=== PATIENT | female | born 2000 | race Caucasian/White ===

== ENCOUNTER 2020-09-30 09:30 | Outpatient (REF) | payer OTHER, SELFPAY ==
[2020-09-30 09:45] LABS: COVID-19 Test Positive (Negative)
== END 2020-09-30 09:31 | disposition home or self-care (01) ==
LOC: HO.LAB 09:30
PROVIDERS: Visit Provider Internal Medicine
DX: Z20.828 Contact with and (suspected) exposure to other viral communicable diseases (principal)
CPT/HCPCS: 87635; C9803

== ENCOUNTER 2020-11-09 16:08 | Outpatient (REF) | payer OTHER, SELFPAY | END 2020-11-09 16:09 | disposition home or self-care (01) | LOC: HO.LAB 16:08 | PROVIDERS: Visit Provider Nurse Practitioner Family | DX: J02.9 Acute pharyngitis, unspecified (principal) | CPT/HCPCS: 87071; 87255; 87880 ==

== ENCOUNTER 2021-06-15 09:59 | Outpatient (REF) | payer OTHER, SELFPAY ==
[2021-06-15 12:09] LABS: HCG Quantitative 3957 mIU/mL
== END 2021-06-15 10:00 | disposition home or self-care (01) ==
LOC: HO.LAB 09:59
PROVIDERS: Visit Provider Advanced Practice Midwife
DX: N92.6 Irregular menstruation, unspecified (principal); E66.01 Morbid (severe) obesity due to excess calories; Z68.41 Body mass index [BMI] 40.0-44.9, adult
CPT/HCPCS: 36415; 81025; 84702

== ENCOUNTER 2021-06-17 06:53 | Outpatient (REF) | payer OTHER, SELFPAY ==
[2021-06-17 08:06] LABS: HCG Quantitative 6653 mIU/mL
== END 2021-06-17 06:54 | disposition home or self-care (01) ==
LOC: HO.LAB 06:53
PROVIDERS: Visit Provider Advanced Practice Midwife
DX: N92.6 Irregular menstruation, unspecified (principal)
CPT/HCPCS: 36415; 84702

== ENCOUNTER 2021-06-24 09:32 | Outpatient (REF) | payer OTHER, SELFPAY ==
--- NOTE | ~2021-06-24 | US_ITS ---
EXAMINATION: OBSTETRICAL ULTRASOUND, FIRST TRIMESTER HISTORY: 21 year her old with irregular menstruation LMP: 05/10/2021 COMPARISON: None TECHNIQUE: Real time transabdominal imaging with color and M-mode Doppler. FINDINGS: A single, live IUP CRL of 4.8 mm c/w 6.2wks is noted. Heart Rate: 120 beats per minute. Both maternal ovaries are seen and appear normal. GESTATIONAL AGE: 1. GA from LMP: 6.3 wks 2. GA from AUA: 6.2 wks ESTIMATED DATE OF DELIVERY: 1. DIANNE from LMP: 02/14/2022 2. DIANNE from AUA: 02/15/2022 US/US OB <= 14 weeks fetus IMPRESSION: 1. The single live IUP 2. CRL consistent with 6.2 weeks of gestation confirming the DIANNE of 02/14/2022. Thank you very much for this referral. This note was generated with a voice recognition program. Please excuse any errors which may have been overlooked during my review of this note. Sometimes these errors may affect the content or meaning of a given sentence.
== END 2021-06-24 09:33 | disposition home or self-care (01) ==
LOC: HO.US 09:32
PROVIDERS: Visit Provider Advanced Practice Midwife
DX: Z34.91 Encounter for supervision of normal pregnancy, unspecified, first trimester (principal)
CPT/HCPCS: 76801

== ENCOUNTER 2021-07-06 09:43 | Outpatient (REF) | payer OTHER, SELFPAY ==
[2021-07-06 10:03] LABS: MANUAL DIFF FLAG NO
[2021-07-06 10:06] LABS: Basophils Percent Auto 0.3 % (0-2); Eosinophils Absolute Auto 0.1 X10*3/uL (0.0-0.4); Eosinophils Percent Auto 1.3 % (0-4); Hematocrit 36.8 % (37-47); Hemoglobin 12.8 g/dl (12.0-16.0); Imm Gran Abs Auto 0.03 X10*3/uL (0.00-0.03); Imm Gran Pct Auto 0.3 % (0.0-0.4); Lymphocytes Percent Auto 20.1 % (20-40); Mean Corpuscular HGB Conc 34.8 g/dl (31.0-35.0); Mean Corpuscular Hemoglobin 30.7 pg (27.0-33.0); Mean Corpuscular Volume 88.2 fL (80-98); Monocytes Absolute Auto 0.8 X10*3/uL (0.1-1.2); Monocytes Percent Auto 7.8 % (2-11); Neutrophils Absolute Auto 6.9 X10*3/uL (2.0-8.3); Neutrophils Percent Auto 70.2 % (45-73); Platelet Count 225 X10*3/uL (160-400); Red Blood Count 4.17 X10*6/uL (4.20-5.50); Red Cell Distribution Width 12.3 % (11.0-16.0); White Blood Count 9.8 X10*3/uL (4.8-10.8)
[2021-07-06 11:32] LABS: Alanine Aminotransferase 13 U/L (0-31); Albumin Level 4.1 g/dL (3.5-5.0); Alkaline Phosphatase 60 U/L (39-117); Anion Gap 12 (12-20); Aspartate Amino Transferase 13 U/L (5-31); Bilirubin Total 0.5 mg/dL (0.0-1.0); Blood Urea Nitrogen 12 mg/dL (9-16); Calcium 9.1 mg/dL (8.4-10.2); Carbon Dioxide 22 mmol/L (22-29); Chloride 108 mmol/L (96-108); Cholesterol 152 mg/dL; Estimated Glomerular Filt Rate > 60; Glucose Fasting 93 mg/dL (60-99); HDL Cholesterol 67 mg/dL; LDL Cholesterol Calculated 74 mg/dl; Potassium 4.6 mmol/L (3.3-5.1); Sodium 137 mmol/L (135-145); Total Protein 6.5 g/dL (6.5-8.0); Triglycerides 55 mg/dL
== END 2021-07-06 09:44 | disposition home or self-care (01) ==
LOC: HO.LAB 09:43
PROVIDERS: Visit Provider Nurse Practitioner Psychiatric/Mental Health
DX: F31.89 Other bipolar disorder (principal)
CPT/HCPCS: 36415; 80053; 80061; 85025

== ENCOUNTER 2021-07-11 22:23 | Emergency (ER) | payer OTHER, SELFPAY ==
--- NOTE | ~2021-07-11 | US_ITS ---
EXAMINATION: US OBSTETRICAL ULTRASOUND CLINICAL INFORMATION: Bleeding and cramping. 9 weeks . COMPARISON: 06/24/2021. LMP: 05/10/2021. Gestational age by maternal dates is 9 weeks 0 days. Estimated date of delivery by maternal dates is 02/14/2022. TECHNIQUE: Transabdominal sonographic evaluation of the pelvis. FINDINGS: There is a single intrauterine gestational sac with visible yolk sac, embryo/fetus, and cardiac activity. Suspect a small subchorionic hematoma at the lower uterine segment measuring 1.2 x 0.8 x 1 cm.. HR: 169 beats per minute. CRL (crown rump length): 2.56 cm (9 weeks 3 days +/- 4 days). DIANNE (estimated date of delivery): 02/11/2022 +/- 4 days. MATERNAL ADNEXA: The right maternal ovary is not seen. The left maternal ovary measures 2.3 x 2 x 2.2 cm. There is no significant maternal adnexal mass. Small amount of pelvic free fluid. US/US OB <= 14 weeks fetus IMPRESSION: 1. Single intrauterine gestation with ultrasound gestational age of 9 weeks 3 days +/- 4 days. Likely small subchorionic hemorrhage. 2. Estimated date of delivery is 02/11/2022 +/- 4 days. 3. No maternal adnexal mass. Small volume pelvic ascites.
[2021-07-11 22:44] VITALS: BP 116/62; PULSE 85; RESP 18; TEMP 37.2; O2SAT 100; BMI 39.9
--- NOTE | 2021-07-11 23:02 | ED.FEMALEGU ---
HPI - Female Genitourinary General Chief complaint: Vaginal Bleeding Stated complaint: Vaginal bleeding/9 wks prg Time Seen by Provider: 07/11/21 22:26 Source: patient Mode of arrival: ambulatory Limitations: no limitations History of Present Illness HPI Narrative: G1 approx 9 weeks D = to IUP on US MD elicited complaint: vaginal bleeding and pelvic pain Onset (ago): week(s) (once last week intermittent today) Location of symptoms: suprapubic Severity: mild Quality of pain: cramping Consistency: intermittent Vaginal bleeding: scant and other (spotting/pink in color) Exacerbating factors: none Relieving factors: none Associated symptoms: denies other symptoms Treatment prior to arrival: none Patient : Yes Related Data Home Medications Medication Instructions Recorded Confirmed lamotrigine 100 mg tablet 100 mg PO DAILY 11/09/20 lamotrigine 25 mg tablet 25 mg PO DAILY 11/09/20 aripiprazole 5 mg tablet 5 mg PO DAILY 06/15/21 Previous Rx's Medication Instructions Recorded vitamin with calcium 1 tab PO DAILY #30 tab 06/15/21 no.72-iron 27 mg-folic acid 1 mg tablet ( Vitamins Plus Low Iron) Allergies Allergy/AdvReac Type Severity Reaction Status Date / Time No Known Allergies Allergy Verified 07/11/21 22:44 [No Known Allergies*] Review of Systems Review of Systems: Constitutional : No Fever, No Chills ENT/Mouth : No sore throat, No Rhinorrhea Eyes: No Eye Pain, No Redness Cardiovascular : No Chest Pain, No SOB Respiratory : No Cough, No Sputum, No Wheezing Gastrointestinal : positive Nausea, No Vomiting, No Diarrhea, positive abdominal pain, Genitourinary : positive irregular bleeding, No Dysuria, No Urinary Frequency, positive pelvic pain Musculoskeletal : No Myalgias Skin : No rash Neuro : No Weakness, No Headache Psych : No Anxiety/Panic, No Depression Heme/Lymph: No bruising, No Lymphadenopathy Endocrine : No Polyuria, No Polydipsia All other systems reviewed and are negative PMFSH Past Medical History Medical History Asthma Herpes simplex type 1 infection Herpes simplex type 2 infection Morbid obesity with body mass index (BMI) of 40.0 to 44.9 in adult Surgical History H/O wisdom tooth extraction Social History Social History Alcohol intake: unknown Patient Tobacco Use Status: Former Tobacco user Use of substances other than those prescribed or required for medical reasons: No Advance Directives: No Patient : Yes 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 Oriented X3. No acute distress. Eyes: Pupils equal, round and reactive to light. ENT: Pharynx normal. Neck: Normal inspection. Neck supple. CVS: Normal heart rate and rhythm. Pulses normal. Respiratory: No respiratory distress. Breath sounds normal. Abdomen: Soft and nontender. : os closed no blood noted Skin: Skin warm and dry. Normal skin color. Normal skin turgor. Extremities: No lower extremity edema. No calf ttp Neuro: Oriented X 3. No motor deficit. No sensory deficit. Course Course Course Narrative: given reported bleeding at home last week and today as well as pelvic cramping - RH negative will need to dose Rhogam. MDM - Female Genitourinary MDM Narrative Medical decision making narrative: 21 yo female G1 9 weeks D = US confirmed IUP comes in with some spotting and pelvic cramping - no recent intercourse will need quant, Rh type, US to assess , threatened ab precautions and follow up with OBGYN. Lab Data Result diagrams: 07/11/21 23:18 07/11/21 23:18 Labs: Lab Results 07/11/21 07/11/21 07/11/21 Range/Units 23:18 23:18 23:18 WBC 11.3 H (4.8-10.8) X10*3/uL RBC 4.02 L (4.20-5.50) X10*6/uL Hgb 12.2 (12.0-16.0) g/dl Hct 35.5 L (37-47) % MCV 88.3 (80-98) fL MCH 30.3 (27.0-33.0) pg MCHC 34.4 (31.0-35.0) g/dl RDW 12.1 (11.0-16.0) % Plt Count 220 (160-400) X10*3/uL MPV 9.1 L (9.4-12.3) fL Immature Gran % (Auto) 0.4 (0.0-0.4) % Neut % (Auto) 70.9 (45-73) % Lymph % (Auto) 18.3 L (20-40) % [place] % (Auto) 8.2 (2-11) % Eos % (Auto) 1.9 (0-4) % Baso % (Auto) 0.3 (0-2) % Lymph # (Auto) 2.1 (1.2-4.9) X10*3/uL [place] # (Auto) 0.9 (0.1-1.2) X10*3/uL Eos # (Auto) 0.2 (0.0-0.4) X10*3/uL Baso # (Auto) 0.0 (0.0-0.2) X10*3/uL Abs Immat Gran (auto) 0.04 H (0.00-0.03) X10*3/uL Absolute Neuts (auto) 8.0 (2.0-8.3) X10*3/uL Absolute Nucleated RBC 0.000 (0.0-0.012) X10*3/uL Nucleated RBC % (auto) 0.0 (0.0-0.2) /100WBC Sodium 139 (135-145) mmol/L Potassium 4.1 (3.3-5.1) mmol/L Chloride 109 H (96-108) mmol/L Carbon Dioxide 23 (22-29) mmol/L Anion Gap 11 L (12-20) BUN 9 (9-16) mg/dL Creatinine 0.64 (0.5-1.4) mg/dL Estim Creat Clear Calc 167.7 Estimated GFR > 60 Random Glucose 95 (60-115) mg/dL Calcium 9.0 (8.4-10.2) mg/dL Total Bilirubin 0.5 (0.0-1.0) mg/dL AST 12 (5-31) U/L ALT 14 (0-31) U/L Alkaline Phosphatase 57 (39-117) U/L Total Protein 6.3 L (6.5-8.0) g/dL Albumin 4.0 (3.5-5.0) g/dL Beta HCG, Quant 11041 mIU/mL Urine Color YELLOW Urine Appearance CLEAR Urine pH 5.5 (5.0-8.0) Ur Specific [place] 1.025 (1.005-1.025) Urine Protein NEG (NEG-TRACE) MG/DL Urine Glucose (UA) NEG (NEG) MG/DL Urine Ketones NEG (NEG) MG/DL Urine Blood NEG (NEG) Urine Nitrite NEG (NEG) Ur Leukocyte Esterase NEG (NEG) Blood Type 07/11/21 Range/Units 23:18 WBC (4.8-10.8) X10*3/uL RBC (4.20-5.50) X10*6/uL Hgb (12.0-16.0) g/dl Hct (37-47) % MCV (80-98) fL MCH (27.0-33.0) pg MCHC (31.0-35.0) g/dl RDW (11.0-16.0) % Plt Count (160-400) X10*3/uL MPV (9.4-12.3) fL Immature Gran % (Auto) (0.0-0.4) % Neut % (Auto) (45-73) % Lymph % (Auto) (20-40) % [place] % (Auto) (2-11) % Eos % (Auto) (0-4) % Baso % (Auto) (0-2) % Lymph # (Auto) (1.2-4.9) X10*3/uL [place] # (Auto) (0.1-1.2) X10*3/uL Eos # (Auto) (0.0-0.4) X10*3/uL Baso # (Auto) (0.0-0.2) X10*3/uL Abs Immat Gran (auto) (0.00-0.03) X10*3/uL Absolute Neuts (auto) (2.0-8.3) X10*3/uL Absolute Nucleated RBC (0.0-0.012) X10*3/uL Nucleated RBC % (auto) (0.0-0.2) /100WBC Sodium (135-145) mmol/L Potassium (3.3-5.1) mmol/L Chloride (96-108) mmol/L Carbon Dioxide (22-29) mmol/L Anion Gap (12-20) BUN (9-16) mg/dL Creatinine (0.5-1.4) mg/dL Estim Creat Clear Calc Estimated GFR Random Glucose (60-115) mg/dL Calcium (8.4-10.2) mg/dL Total Bilirubin (0.0-1.0) mg/dL AST (5-31) U/L ALT (0-31) U/L Alkaline Phosphatase (39-117) U/L Total Protein (6.5-8.0) g/dL Albumin (3.5-5.0) g/dL Beta HCG, Quant mIU/mL Urine Color Urine Appearance Urine pH (5.0-8.0) Ur Specific [place] (1.005-1.025) Urine Protein (NEG-TRACE) MG/DL Urine Glucose (UA) (NEG) MG/DL Urine Ketones (NEG) MG/DL Urine Blood (NEG) Urine Nitrite (NEG) Ur Leukocyte Esterase (NEG) Blood Type A Negative Discharge Plan Discharge Clinical Impression: Threatened Subchorionic bleed Qualifiers: Fetus number: single or unspecified fetus Trimester: first trimester Qualified Code(s): O41.8X10 - Other specified disorders of amniotic fluid and membranes, first trimester, not applicable or unspecified Patient Disposition: Home, Self-Care Instructions: Rho(D) Immune Globulin (By injection), Threatened Miscarriage (ED), Subchorionic Hemorrhage (ED) Additional Instructions: return to ED for any worsening symptoms or concerns call your OBGYN today, pelvic rest until symptoms resolved. Prescriptions: No Action lamotrigine 100 mg tablet 100 mg PO DAILY RF: 0 lamotrigine 25 mg tablet 25 mg PO DAILY RF: 0 aripiprazole 5 mg tablet 5 mg PO DAILY RF: 0 Vitamin Plus Low Iron 27 mg iron- 1 mg tablet 1 tab PO DAILY Qty: 30 RF: 11 Stand Alone Forms: Work/School Release
[2021-07-11 23:23] LABS: MANUAL DIFF FLAG NO
[2021-07-11] MEDS: 0.9 % Sodium Chloride 1,000 ML 999 ML IVCONT (23:23)
[2021-07-11 23:24] LABS: Basophils Percent Auto 0.3 % (0-2); Eosinophils Absolute Auto 0.2 X10*3/uL (0.0-0.4); Eosinophils Percent Auto 1.9 % (0-4); Hematocrit 35.5 % (37-47); Hemoglobin 12.2 g/dl (12.0-16.0); Imm Gran Abs Auto 0.04 X10*3/uL (0.00-0.03); Imm Gran Pct Auto 0.4 % (0.0-0.4); Lymphocytes Absolute Auto 2.1 X10*3/uL (1.2-4.9); Lymphocytes Percent Auto 18.3 % (20-40); Mean Corpuscular HGB Conc 34.4 g/dl (31.0-35.0); Mean Corpuscular Hemoglobin 30.3 pg (27.0-33.0); Mean Corpuscular Volume 88.3 fL (80-98); Mean Platelet Volume 9.1 fL (9.4-12.3); Monocytes Absolute Auto 0.9 X10*3/uL (0.1-1.2); Monocytes Percent Auto 8.2 % (2-11); Neutrophils Percent Auto 70.9 % (45-73); Platelet Count 220 X10*3/uL (160-400); Red Blood Count 4.02 X10*6/uL (4.20-5.50); Red Cell Distribution Width 12.1 % (11.0-16.0); White Blood Count 11.3 X10*3/uL (4.8-10.8)
[2021-07-11 23:27] LABS: Glucose Urine UA NEG (NEG); Leukocyte Esterase Urine NEG (NEG); Nitrite Urine NEG (NEG); PH 5.5 (5.0-8.0); Specific Gravity - Urine 1.025 (1.005-1.025); Urine Blood NEG (NEG); Urine Ketones NEG (NEG); Urine Protein NEG (NEG-TRACE)
[2021-07-11 23:30] LABS: Appearance Urine CLEAR; Color Urine YELLOW
--- NOTE | 2021-07-11 23:35 | PC.NURSE ---
Provider in to bedside to perform a pelvic exam.
[2021-07-11 23:48] LABS: Alanine Aminotransferase 14 U/L (0-31); Alkaline Phosphatase 57 U/L (39-117); Anion Gap 11 (12-20); Aspartate Amino Transferase 12 U/L (5-31); Bilirubin Total 0.5 mg/dL (0.0-1.0); Blood Urea Nitrogen 9 mg/dL (9-16); Carbon Dioxide 23 mmol/L (22-29); Chloride 109 mmol/L (96-108); Creatinine Clr Calc Pharmacy 167.7; Estimated Glomerular Filt Rate > 60; Glucose Random 95 mg/dL (60-115); Potassium 4.1 mmol/L (3.3-5.1); Sodium 139 mmol/L (135-145); Total Protein 6.3 g/dL (6.5-8.0)
[2021-07-12 00:30] LABS: HCG Quantitative 91350 mIU/mL
[2021-07-12] MEDS: Rho(D) Immune Globulin 300 MCG SYRINGE IM (00:32)
== END 2021-07-12 01:48 | disposition home or self-care (01) ==
PROVIDERS: Student in an Organized Health Care Education/Training Program; Emergency Provider Emergency Medicine
DX: O20.0 Threatened abortion (principal); O41.8X10 Other specified disorders of amniotic fluid and membranes, first trimester, not applicable or unspecified; Z3A.09 9 weeks gestation of pregnancy
CPT/HCPCS: 36415; 76801; 80053; 81003; 84702; 85025; 86900; 86901; 96360; 96372; 99284; J2790

== ENCOUNTER → 2021-07-20 09:51 | Outpatient (BNVA) | payer OTHER, SELFPAY | PROVIDERS: Visit Provider Advanced Practice Midwife | DX: Z34.81 Encounter for supervision of other normal pregnancy, first trimester (principal); Z3A.10 10 weeks gestation of pregnancy | CPT/HCPCS: 99212 ==

== ENCOUNTER → 2021-08-05 14:02 | Outpatient (BNVA) | payer OTHER, SELFPAY | PROVIDERS: Visit Provider Advanced Practice Midwife | DX: O99.511 Diseases of the respiratory system complicating pregnancy, first trimester (principal); J45.909 Unspecified asthma, uncomplicated; Z3A.12 12 weeks gestation of pregnancy | CPT/HCPCS: 99212 ==

== ENCOUNTER 2021-08-08 11:04 | Outpatient (REF) | payer OTHER, SELFPAY ==
[2021-08-08 13:20] LABS: Hematocrit 37.4 % (37-47); Hemoglobin 12.8 g/dl (12.0-16.0); Mean Corpuscular HGB Conc 34.2 g/dl (31.0-35.0); Mean Corpuscular Hemoglobin 29.6 pg (27.0-33.0); Mean Corpuscular Volume 86.6 fL (80-98); Mean Platelet Volume 9.4 fL (9.4-12.3); Platelet Count 245 X10*3/uL (160-400); Red Blood Count 4.32 X10*6/uL (4.20-5.50); White Blood Count 10.8 X10*3/uL (4.8-10.8)
[2021-08-08 13:55] LABS: Glucose 1 Hour PP 50gm Dose 92 mg/dL (60-140)
[2021-08-08 13:58] LABS: Amphetamine Screen Urine Not Detected (Not Detect); Barbiturates, Urine Not Detected (Not Detect); Benzodiazepines Screen Urine Not Detected (Not Detect); Cannabinoid Screen Urine Not Detected (Not Detect); Cocaine Screen Urine Not Detected (Not Detect); Fentanyl, urine Not Detected (Not Detect); Opiate Screen Urine Not Detected (Not Detect); Phencyclidine Screen Urine Not Detected (Not Detect)
[2021-08-08 14:54] LABS: Syphilis Screen Nonreactive (Nonreactive)
[2021-08-09 08:56] LABS: Rubella IgG Antibody 1.63 Index; Varicella IgG Antibody <135.00 index
[2021-08-09 08:59] LABS: HBsAGNum1 0.19 S/CO (0.00-0.99); HIV AB/AG Nonreactive (Nonreactive); HIV Num 1 0.08 S/CO (0.00-0.99); Hepatitis B Surface Antigen Negative (Negative); ~HepC Num1 0.09 S/CO (0.00-0.79); ~Hepatitis C Antibody Nonreactive (Nonreactive)
== END 2021-08-08 11:05 | disposition home or self-care (01) ==
LOC: HO.LAB 11:04
PROVIDERS: Visit Provider Advanced Practice Midwife
DX: Z34.90 Encounter for supervision of normal pregnancy, unspecified, unspecified trimester (principal)
CPT/HCPCS: 80307; 85027; 86762; 86780; 86787; 86803; 86850; 86870; 86885; 86900; 86901; 87086; 87340; 87389

== ENCOUNTER 2021-08-12 13:53 | Outpatient (REF) | payer OTHER, SELFPAY ==
--- NOTE | ~2021-08-12 | US_ITS ---
EXAMINATION: OBSTETRICAL ULTRASOUND, FIRST TRIMESTER HISTORY: 21-year-old at 13.3 weeks of gestation NT screening COMPARISON: 07/12/2021 TECHNIQUE: Real time transabdominal imaging with color and M-mode Doppler. FINDINGS: A single, live IUP CRL of 79.3 mm c/w 14.0wks is noted. Heart Rate: 147 beats per minute. Normal yolk sac seen. NT was 1.27.mm. NB Present The embryo appears sonographically wnl for this GA. Both maternal ovaries are seen and appear normal. GESTATIONAL AGE: 1. Established GA: 13.3 wks 2. GA from AUA: 14.0 wks ESTIMATED DATE OF DELIVERY: 1. Established DIANNE: 02/14/2022 2. DIANNE from AUA: 02/10/2022 US/US OB 1T nuc measure IMPRESSION: 1. Single live IUP 2. Size equals dates 3. NT of 1.27 mm MFM Consultation: I reviewed the ultrasound findings along with significance of NT measurement. The NT of less than 3mm is generally reassuring. However, the sensitivity for T21 detection is only 60%. I reviewed the availability of serum aneuploidy screening which includes cell-free DNA and placental protein based tests. I discussed the sensitivity, false-positive rate, and other limitations associated with each test. I also reviewed the availability of invasive diagnostic tests that are associated small but definite risk of miscarriage. We also reviewed the differences between screening tests and diagnostic tests. After our discussion, she opted for the First trimester screening that is based on cell-free DNA or non-invasive testing (NIPT). She has history of the bipolar disorder. Currently, she is on Lamictal and Abilify. Use of Lamictal in is acceptable as long as there is a maternal indication. Abilify has not been associated with increased risk of congenital abnormalities in animal models. However there is very little human data. All anti-seizure agents and mood stabilizers have been associated with increased instance of the abstinence syndrome. However the benefit seem to await the risks. A follow up at 18 weeks for survey has been scheduled. Thank you very much for this referral. Total time 30 minutes. The time spent was devoted to counseling the patient about the disease and diagnosis, coordinating care including reviewing her records, pertinent lab data and studies, as well as discussing diagnostic evaluation and workup, plan therapeutic interventions and future disposition of care. This includes any additional research needed to obtain further information in formulating the plan of care of this patient. This note was generated with a voice recognition program. Please excuse any errors which may have been overlooked during my review of this note. Sometimes these errors may affect the content or meaning of a given sentence.
== END 2021-08-12 13:54 | disposition home or self-care (01) ==
LOC: HO.US 13:53
PROVIDERS: Visit Provider Advanced Practice Midwife
DX: Z36.82 Encounter for antenatal screening for nuchal translucency (principal)
CPT/HCPCS: 76813

== ENCOUNTER 2021-08-17 08:28 | Outpatient (REF) | payer OTHER, SELFPAY ==
[2021-08-17 17:15] LABS: CT PCR NOT DETECTED (Not Detect.); NG PCR NOT DETECTED (Not Detect.)
== END 2021-08-17 08:29 | disposition home or self-care (01) ==
LOC: HO.LAB 08:28
PROVIDERS: Visit Provider Advanced Practice Midwife
DX: O99.212 Obesity complicating pregnancy, second trimester (principal); E66.01 Morbid (severe) obesity due to excess calories; Z3A.14 14 weeks gestation of pregnancy; Z20.2 Contact with and (suspected) exposure to infections with a predominantly sexual mode of transmission
CPT/HCPCS: 81003; 87491; 87591; 88142; 99212

== ENCOUNTER 2021-08-21 05:44 | Emergency (ER) | payer OTHER, SELFPAY ==
[2021-08-21 05:52] VITALS: BP 133/67; PULSE 98; RESP 16; O2SAT 98; BMI 41.5
--- NOTE | 2021-08-21 06:43 | ED_ITS ---
HPI - Back Pain/Injury General Chief Complaint: Back Pain/Injury <Roosevelt Weathers MD - Last Filed: 08/21/21 06:55> Stated Complaint: back pain from inj <Roosevelt Weathers MD - Last Filed: 08/21/21 06:55> Time Seen by Provider: 08/21/21 06:16 <Roosevelt Weathers MD - Last Filed: 08/21/21 06:55> Source: patient <Roosevelt Weathers MD - Last Filed: 08/21/21 06:55> Mode of arrival: ambulatory <Roosevelt Weathers MD - Last Filed: 08/21/21 06:55> Limitations: no limitations <Roosevelt Weathers MD - Last Filed: 08/21/21 06:55> History of Present Illness HPI Narrative: 21-year-old female who presents emergency department for evaluation lower back pain. 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 She states that yesterday at around 10:30 a.m. she was involved in a restraint of a patient. During their strain she felt pain in her left lower back. She states she was able to work but had to leave work early at around 1:30 p.m. secondary to her pain. She states that the pain got progressively worse throughout the evening. At 11:00 p.m. she bent over to plug in her phone and developed severe left lower back pain to the point where she was unable to straighten up. She states the pain shot down the back of her leg to just above her knee. She also states that the pain radiated to her right buttocks area but not down her leg. She took Tylenol with only minimal relief of her pain. At 3:00 a.m. this morning she got up to go to the bathroom and her ?back locked up ?and it took her an hour and a half to get back in bed secondary to her pain and spasm. This morning, she states that the pain was severe and was 8/10. She describes the pain as a tense feeling with spasm and a sharp component. The pain does radiate down the back of her right leg to just above her knee. She denied loss of bowel or bladder control. She denied weakness of her lower extremities but she states that her left leg does intermittently feel numb. The patient is 14 weeks , she is a . The patient had an ultrasound 1 week prior. She states that this was complicated by bleeding and she is Rh negative and she received RhoGAM. She denied being ill in any other way prior to the injury, she denied fever, chills, chest pain, shortness of breath, dyspnea on exertion. <Roosevelt Weathers MD - Last Filed: 08/21/21 06:55> Related Data Home Medications: Home Medications Medication Instructions Recorded Confirmed lamotrigine 100 mg tablet 100 mg PO DAILY 11/09/20 08/21/21 lamotrigine 25 mg tablet 25 mg PO DAILY 11/09/20 08/21/21 aripiprazole 5 mg tablet 5 mg PO DAILY 06/15/21 08/21/21 Previous Rx's Medication Instructions Recorded vitamin with calcium 1 tab PO DAILY #30 tab 06/15/21 no.72-iron 27 mg-folic acid 1 mg tablet ( Vitamins Plus Low Iron) aspirin 81 mg chewable tablet 162 mg PO DAILY #60 tab 08/17/21 (Aspirin Childrens) <Roosevelt Weathers MD - Last Filed: 08/21/21 06:55> Allergies/Adverse Reactions: Allergies Allergy/AdvReac Type Severity Reaction Status Date / Time No Known Allergies Allergy Verified 08/17/21 08:45 [No Known Allergies*] <Roosevelt Weathers MD - Last Filed: 08/21/21 06:55> Review of Systems Review of Systems: Yes all other systems are reviewed and are negative <Roosevelt Weathers MD - Last Filed: 08/21/21 06:55> [facility] Past Medical History [facility] Narrative: Social history: 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 She denies tobacco, alcohol and drug use. <Roosevelt Weathers MD - Last Filed: 08/21/21 06:55> Medical History: Medical History Asthma Bipolar 2 disorder Herpes simplex type 1 infection Herpes simplex type 2 infection Morbid obesity with body mass index (BMI) of 40.0 to 44.9 in adult <Roosevelt Weathers MD - Last Filed: 08/21/21 06:55> Surgical History: Surgical History H/O wisdom tooth extraction <Roosevelt Weathers MD - Last Filed: 08/21/21 06:55> Family History Family History: Family History Mother No problems noted. Father No problems noted. Maternal Grandmother Diabetes mellitus Maternal Grandfather Esophageal cancer Paternal Grandmother Lung cancer Paternal Grandfather Colon cancer <Roosevelt Weathers MD - Last Filed: 08/21/21 06:55> Social History Social History: Social History Household Members: Family Housing: House Are you a primary healthcare business analyst to a significant other at home: No Do you presently have visiting nurse or other home services: No Alcohol intake: former Patient Tobacco Use Status: Former Tobacco user Use of substances other than those prescribed or required for medical reasons: No Advance Directives: No Advance Directives Information Provided: Yes Patient : Yes service: No Current occupational status: employed 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 Current occupational exposures/hazards: No Sexual orientation: Straight/Heterosexual Gender identity: Female <Roosevelt Weathers MD - Last Filed: 08/21/21 06:55> Physical Exam Vital Signs: Vital Signs: Last Vital Signs Pulse 85 08/21/21 10:22 Resp 16 08/21/21 10:22 BP 124/62 08/21/21 10:22 Pulse Ox 98 08/21/21 10:22 Body Mass Index 41.5 <Roosevelt Weathers MD - Last Filed: 08/21/21 06:55> Vital Signs: Last Vital Signs Pulse 85 08/21/21 10:22 Resp 16 08/21/21 10:22 BP 124/62 08/21/21 10:22 Pulse Ox 98 08/21/21 10:22 Body Mass Index 41.5 <Norah Sargent MD - Last Filed: 08/21/21 11:29> Const: Other: Very pleasant and cooperative female patient, she is lying on her right side secondary to her lower back pain, she is unable to move on structure secondary to pain, she answers all questions appropriately. <Roosevelt Weathers MD - Last Filed: 08/21/21 06:55> HENMT: Head: Yes normal to inspection, Yes normocephalic and Yes atraumatic <Roosevelt Weathers MD - Last Filed: 08/21/21 06:55> Ears: external ears normal <MD Jamel Carrera Last Filed: 08/21/21 06:55> General nose exam: Normal external nose present <MD Jamel Carrera Last Filed: 08/21/21 06:55> Face and sinus: Yes normal facial exam <MD Jamel Carrera Last Filed: 08/21/21 06:55> Mouth: Normal oral and palatal mucosa present <MD Jamel Carrera Last Filed: 08/21/21 06:55> Throat: Yes posterior oropharynx normal <MD Jamel Carrera Last Filed: 08/21/21 06:55> Eyes: General: appearance normal, both eyes and all related structures <MD Jamel Carrera Last Filed: 08/21/21 06:55> Pupils: Equal, round and reactive pupils present <MD Jamel Carrera Last Filed: 08/21/21 06:55> Neck: Neck: Yes normal visual inspection, Yes no lymphadenopathy, Yes trachea midline and Yes supple <MD Jamel Carrera Last Filed: 08/21/21 06:55> Chest: Chest palpation & inspection: normal inspection of the chest and normal palpation of entire chest wall <MD Jamel Carrera Last Filed: 08/21/21 06:55> Resp: Effort & Inspection: normal respiratory effort and able to speak in complete sentences <MD Jamel Carrera Last Filed: 08/21/21 06:55> Auscultation: clear to auscultation bilaterally <MD Jamel Carrera Last Filed: 08/21/21 06:55> Cardio: Rate: regular rate <MD Jamel Carrera Last Filed: 08/21/21 06:55> Rhythm: regular rhythm <MD Jamle Carrera Last Filed: 08/21/21 06:55> Heart sounds: S1 normal heart sound present, S2 normal heart sound present and no murmurs <MD Jamel Carrera Last Filed: 08/21/21 06:55> GI: Inspection: Yes normal to inspection <MD Jamel Carrera Last Filed: 08/21/21 06:55> Palpation (GI): Soft to palpation, nontender and no guarding <MD Jamel Carrera Last Filed: 08/21/21 06:55> Auscultation: normal bowel sounds <MD Jamel Carrera Last Filed: 08/21/21 06:55> : General: Yes no CVA tenderness <MD Jamel Carrera Last Filed: 08/21/21 06:55> Back/Spine/Pelvis: Back: no CVA tenderness <MD Jamel Carrera Last Filed: 08/21/21 06:55> Thoracic/Lumbar Spine: thoracic and lumbar spine normal to inspection, paraspinal muscle tenderness on the left in the lower lumbar (Moderate to severe with minimal palpation), thoraco-lumbar spasm on the left in the lower lumbar, lumbar spinal tenderness at L3, at L4 and at L5 and straight leg raise positive <MD Jamel Carrera Last Filed: 08/21/21 06:55> Skin: General skin exam: no rashes or lesions noted <MD Jamel Carrera Last Filed: 08/21/21 06:55> Neuro: Cranial nerves: Yes CN's II-XII intact bilaterally and Yes Equal, round and reactive pupils present <MD Jamel Carrera Last Filed: 08/21/21 06:55> Cognition (Neuro): normal cognition <MD Jamel Carrera Last Filed: 08/21/21 06:55> Motor exam (neuro): 5/5 motor strength present throughout <MD Jamel Carrera Last Filed: 08/21/21 06:55> Extrem: General: Yes normal to inspection <Roosevelt Weathers MD - Last Filed: 08/21/21 06:55> Psych: Appearance: grossly normal <Roosevelt Weathers MD - Last Filed: 08/21/21 06:55> Speech and movement: Normal speech and movement present <Roosevelt Weathers MD - Last Filed: 08/21/21 06:55> Affect: normal affect <Roosevelt Weathers MD - Last Filed: 08/21/21 06:55> Attitude: cooperative <Roosevelt Weathers MD - Last Filed: 08/21/21 06:55> Thought process: Normal thought process present <Roosevelt Weathers MD - Last Filed: 08/21/21 06:55> Thought content: Normal thought content present <Roosevelt Weathers MD - Last Filed: 08/21/21 06:55> Course Course Course Narrative: 21-year-old female 14 weeks , Rh negative who presents to the emergency department for evaluation of lower back pain that occurred while she was at work yesterday, the pain is gotten progressively worse to the point where she is having difficulty moving, she is experiencing pain in her left lower back as well as the pain that radiates down the back of her leg to just above her knee. Examination revealed normal vital signs. The patient did have significant tenderness and spasm of her left paraspinal lumbar muscles, she had mild tenderness with palpation of her lower lumbar spine. Her neurologic exam is nonfocal. At this time, I suspect that she has a musculoskeletal injury of her lumbar paraspinal muscle with inflammation around the nerve roots causing pain to travel down her left leg. I did discuss the use of anti-inflammatory steroids and narcotic medications in with the patient. The patient was treated with Solu-Medrol 60 mg IV, morphine 4 mg IV, Zofran 4 mg IV and Tylenol 975 mg orally. We will apply ice to the patient's left lower back paraspinal muscles. At the end of my shift, the patient's care was turned over to my colleague, Dr. Norah Sargent. <Roosevelt Weathers MD - Last Filed: 08/21/21 06:55> MDM - Back Pain/Injury MDM Narrative Medical decision making narrative: Patient has no bowel urinary incontinence. No focal weakness. Positive back pain radiating down to the legs. Consistent with sciatica. Patient is currently 14 weeks Rh is negative but already had RhoGAM. Had ultrasound done shows an intrauterine . Given multiple doses of pain medicine along with steroids moderate relief patient unable to ambulate. Case discussed with hospitalist team. Will admit for pain control. In stable condition. <Norah Sargent MD - Last Filed: 08/21/21 11:29> Lab Data Labs: Lab Results 08/21/21 Range/Units 10:29 COVID-19 ([facility]) Negative (Negative) COVID-19 Clin Com See Note <Roosevelt Weathers MD - Last Filed: 08/21/21 06:55> Lab Results 08/21/21 Range/Units 10:29 COVID-19 ([facility]) Negative (Negative) COVID-19 Clin Com See Note <Norah Sargent MD - Last Filed: 08/21/21 11:29> Discharge Plan Discharge Clinical Impression: Sciatica <Roosevelt Weathers MD - Last Filed: 08/21/21 06:55> Patient Disposition: Admitted As Inpatient <Roosevelt Weathers MD - Last Filed: 08/21/21 06:55> Prescriptions: No Action lamotrigine 100 mg tablet 100 mg PO DAILY RF: 0 lamotrigine 25 mg tablet 25 mg PO DAILY RF: 0 aripiprazole 5 mg tablet 5 mg PO DAILY RF: 0 Vitamin Plus Low Iron 27 mg iron- 1 mg tablet 1 tab PO DAILY Qty: 30 RF: 11 aspirin [Aspirin Childrens] 81 mg tablet,chewable 162 mg PO DAILY Qty: 60 RF: 7 <Roosevelt Weathers MD - Last Filed: 08/21/21 06:55>
[2021-08-21] MEDS: ondansetron HCL 4 MG/2 ML VIAL IVPUSH (06:54)
[2021-08-21 06:56] VITALS: RESP 16
[2021-08-21] MEDS: Morphine Sulfate 4 MG/ML CARTRIDGE IVPUSH ×2 (06:56→07:43)
[2021-08-21] MEDS: Acetaminophen 325 MG TABLET 975 MG PO (07:00)
[2021-08-21] MEDS: methylPREDNISolone Sod Succ 125 MG/2 ML VIAL 60 MG IVPUSH (07:01)
[2021-08-21] MEDS: 0.9 % Sodium Chloride 1,000 ML 999 ML IV (07:06)
[2021-08-21 07:40] VITALS: BP 109/61; PULSE 81; RESP 16; O2SAT 99
[2021-08-21 09:00] VITALS: RESP 16
[2021-08-21] MEDS: HYDROmorphone HCl 0.5 MG/0.5 ML SYRINGE IVPUSH ×2 (09:00→10:24)
[2021-08-21 10:22] VITALS: BP 124/62; PULSE 85; RESP 16; O2SAT 98
[2021-08-21 10:54] LABS: COVID-19 Test Negative (Negative)
== END 2021-08-21 13:23 | disposition admitted as inpatient to this hospital (09) ==
PROVIDERS: Emergency Provider Emergency Medicine Emergency Medical Services
DX: M54.42 Lumbago with sciatica, left side (principal); Z87.891 Personal history of nicotine dependence; Z20.822 Contact with and (suspected) exposure to COVID-19; Z79.899 Other long term (current) drug therapy
CPT/HCPCS: 36415; 87635; 96361; 96374; 96375; 96376; 99284; 99285; J1170; J2270; J2405; J2930

== ENCOUNTER → 2021-08-24 13:15 | Outpatient (BNVA) | payer OTHER, SELFPAY | PROVIDERS: Visit Provider Physician Assistant Medical | DX: Z13.89 Encounter for screening for other disorder (principal) | CPT/HCPCS: 99203 ==

== ENCOUNTER → 2021-08-31 09:55 | Outpatient (BNVA) | payer OTHER, SELFPAY | PROVIDERS: Visit Provider Physician Assistant | DX: Z13.89 Encounter for screening for other disorder (principal) | CPT/HCPCS: 99213 ==

== ENCOUNTER → 2021-09-08 10:58 | Outpatient (BNVA) | payer OTHER, SELFPAY | PROVIDERS: Visit Provider Physician Assistant | DX: Z13.89 Encounter for screening for other disorder (principal) | CPT/HCPCS: 99213 ==

== ENCOUNTER → 2021-09-15 09:50 | Outpatient (BNVA) | payer OTHER, SELFPAY | PROVIDERS: Visit Provider Advanced Practice Midwife | DX: O21.9 Vomiting of pregnancy, unspecified (principal); Z3A.18 18 weeks gestation of pregnancy | CPT/HCPCS: 99212 ==

== ENCOUNTER 2021-09-16 12:46 | Outpatient (REF) | payer OTHER, SELFPAY ==
--- NOTE | ~2021-09-16 | US_ITS ---
EXAMINATION: US OBSTETRICAL CLINICAL INFORMATION: A 21-year-old at 18.3 weeks of gestation Suspected anomaly COMPARISON: 08/12/2021 TECHNIQUE: Real-time transabdominal ultrasound was performed using C1-5 megahertz transducer. FINDINGS: A single, active, fetus is seen in vertex presentation. The placenta is posterior without previa, and the amniotic fluid volume is wnl. MEASUREMENTS: 1. Biparietal Diameter: 4.2 cm; 18.6 wks 2. Occipital Frontal Diameter: 85.2 cm 3. Head Circumference: 15.5 cm; 18.4 wks 4. Abdominal Circumference: 12.6 cm; 18.2 wks 5. Femur Length: 2.9 cm; 19.0 wks 6. Humerus Length: 2.6 cm; 18.2 wks 7. Tibia Length: 2.5 cm; 18.6 wks 8. Ulna Length: 2.4 cm; 18.3 wks 9. Lateral ventricle: 0.64 cm 10. Cerebellum: 1.9 cm; 19.3 wks 11. Cisterna Magna: 0.3 cm 12. Nuchal Fold: 3.3 mm 13. Heart Rate: 150 beats per minute Rt ovary: normal Lt ovary: normal Cervical length 3.8 cm on T/A. GESTATIONAL AGE: 1. Established GA: 18.3 wks 2. GA from [facility]: 18.5 wks ESTIMATED DATE OF DELIVERY: 1. Established DIANNE: 02/14/2022 2. DIANNE from [facility]: 02/12/2022 ANATOMY: The visualized anatomy includes but not limited to: 1. Cranium: Normal 2. Intracranial anatomy: cavum septum pellucidi, lateral ventricles, choroid plexus, cerebellum, posterior fossa, third and fourth ventricles. 3. face: orbits, lip/palate, profile, nasal bone 4. Heart: four-chamber view of the heart, ventricular septum, foramen ovale, pulmonary vein, left and right outflow tracts, three-vessel view, 3 vessel trachea view, aortic and ductal arches, situs.. 5. Diaphragm: Normal 6. Abdominal wall: Normal 7. Cord Insertion: Normal 8. Spine: Cervical, thoracic, lumbar, sacral. 9. Stomach: Normal size and shape 10. Right Kidney: Normal 11. Left Kidney: Normal 12. 3 vessel cord: Normal 13. Upper extremity: Open hands, fifth digit. 14. Lower extremity: Tibia, fibula, bilateral feet. 15. Bladder: Normal 16. Genitalia: Male, patient aware US/US OB /maternal detail IMPRESSION: 1. Single, living, intrauterine with appropriate biometry. 2. Normal survey DISCUSSION: I reviewed today's ultrasound findings. We discussed the limitations of ultrasound in diagnosing aneuploidy and other congenital abnormalities. I reviewed the differences between screening test and diagnostic test. Amniocentesis was discussed and declined. She was informed that the baseline incidence of congenital abnormalities is approximately 3-5%. Not all these conditions are diagnosable in utero. RECOMMENDATIONS: Follow-up when necessary Thank you for allowing me to participate in her care. This note was generated with a voice recognition program. Please excuse any errors which may have been overlooked during my review of this note. Sometimes these errors may affect the content or meaning of a given sentence.
== END 2021-09-16 12:47 | disposition home or self-care (01) ==
LOC: HO.US 12:46
PROVIDERS: Visit Provider Advanced Practice Midwife
DX: Z34.92 Encounter for supervision of normal pregnancy, unspecified, second trimester (principal)
CPT/HCPCS: 76811

== ENCOUNTER → 2021-09-29 15:25 | Outpatient (BNVA) | payer OTHER, SELFPAY | PROVIDERS: Visit Provider Physician Assistant | DX: Z13.89 Encounter for screening for other disorder (principal) | CPT/HCPCS: 99213 ==

== ENCOUNTER 2021-10-12 17:00 | Outpatient (RCR) | payer OTHER, SELFPAY ==
--- NOTE | 2021-09-19 15:20 | MHC.PT.EP ---
[facility] [place] Office [place] Office [place] Office [address] Rodney Gutierrez [address] [phone] F: [phone] F: [phone] F: [phone] F: [phone] Physical Therapy Plan of Care Date of Evaluation: Date of Surgery: N/A Diagnosis: Acute lumbar pain Assessment: Pt is a pleasant 21yo F who is 18.5 weeks . 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 She previously had radiating symptoms into LLE but that resolved > 1 week ago. She presents today with current impairments in pain, increased lumbar lordosis, decreased core stab, decreased hip/glute strength, and impaired posture. She is limited functionally by prolonged positions and laying flat on her back. She is an excellent candidate for skilled PT services to address current impairments in order to facilitate return to PLOF. She will benefit from skilled PT services 2x/week for 4 weeks and will be reassessed at that time. Frequency and Duration: The patient will be seen 2x/week for 4 weeks Short Term Goals: Pt will be I with HEP to promote self management of symptoms Pt will demonstrate improved postural awareness Fdc Goals: Pt will improve hip ABD strength by 1 grade to assist with standing functional tasks Pt will tolerate standing > 30 min without pain Pt will demonstrate improved body mechanics including proper squatting technique to assist with patient care at work. Treatment Plan: Modalities to reduce pain, spasms and effusion. Manual therapy to restore motion and function. Therapeutic exercise to improve strength and flexibility. Neuromuscular re-education for posture and balance. Therapeutic activities to return to functional activities of daily living. Electronically signed by: Katina Herndon, PT, DPT Please sign and return to therapist. Thank you for your referral.
--- NOTE | 2021-10-26 16:31 | MHC.PT.DC ---
[facility] [place] Office [place] [facility] [place] Office [address] Rodney Gutierrez [address] [phone] F: [phone] F: [phone] F: [phone] F: [phone] Physical Therapy Discharge Report Diagnosis: Acute lumbar pain Date of Surgery: N/A Date of Evaluation: 09/19/21 Date of Discharge: 10/26/21 Treatments to Date: 6 Cancellations to Date: 4 No Shows to Date: 0 Discharge Status: Improved Function Independent with HEP Patient Elected to Stop Discharge Summary: Pt was seen for skilled PT services from 09/19/21-10/12/21. Her last attended appointment was 10/12/21. She cancelled her last scheduled appointment 2* family emergency and did not want to reschedule her appointment. She made good progress overall since SOC including a decrease in pain. She was I with HEP. Pt is being D/C from skilled PT services at this time. Pt current level of function unknown at this time. Electronically signed by: Katina Herndon, PT, DPT Please sign and return to therapist. Thank you for your referral.
== END 2021-10-26 16:30 | disposition home or self-care (01) ==
LOC: HO.PT 17:00
PROVIDERS: Visit Provider Physician Assistant
DX: M54.50 Low back pain, unspecified (principal)
CPT/HCPCS: 97110; 97162; 97530

== ENCOUNTER → 2021-10-13 09:23 | Outpatient (BNVA) | payer OTHER, SELFPAY | PROVIDERS: Visit Provider Advanced Practice Midwife | DX: Z34.82 Encounter for supervision of other normal pregnancy, second trimester (principal); Z3A.22 22 weeks gestation of pregnancy | CPT/HCPCS: 99212 ==

== ENCOUNTER → 2021-11-14 09:30 | Outpatient (BNVA) | payer OTHER, SELFPAY | PROVIDERS: Visit Provider Advanced Practice Midwife | DX: O36.62X0 Maternal care for excessive fetal growth, second trimester, not applicable or unspecified (principal); Z3A.26 26 weeks gestation of pregnancy | CPT/HCPCS: 81003; 99212 ==

== ENCOUNTER 2021-12-07 07:55 | Outpatient (REF) | payer OTHER, SELFPAY ==
[2021-12-07 09:19] LABS: Hematocrit 34.9 % (37.0-47.0); Hemoglobin 11.6 g/dl (12.0-16.0); Mean Corpuscular HGB Conc 33.2 g/dl (31.0-35.0); Mean Corpuscular Hemoglobin 30.1 pg (27.0-33.0); Mean Corpuscular Volume 90.4 fL (80.0-98.0); Platelet Count 284 X10*3/uL (160-400); Red Blood Count 3.86 X10*6/uL (4.20-5.50); White Blood Count 13.8 X10*3/uL (4.8-10.8)
[2021-12-07 09:38] LABS: Glucose 1 Hour PP 50gm Dose 101 mg/dL (60-140)
[2021-12-07 10:02] LABS: Syphilis Screen Nonreactive (Nonreactive)
== END 2021-12-07 07:56 | disposition home or self-care (01) ==
LOC: HO.LAB 07:55
PROVIDERS: Visit Provider Advanced Practice Midwife
DX: Z34.92 Encounter for supervision of normal pregnancy, unspecified, second trimester (principal); Z20.2 Contact with and (suspected) exposure to infections with a predominantly sexual mode of transmission
CPT/HCPCS: 36415; 85027; 86780; 86850

== ENCOUNTER → 2021-12-12 15:18 | Outpatient (BNVA) | payer OTHER, SELFPAY | PROVIDERS: Visit Provider Advanced Practice Midwife | DX: O26.893 Other specified pregnancy related conditions, third trimester (principal); Z67.91 Unspecified blood type, Rh negative | CPT/HCPCS: 81003; 96372; 99212 ==

== ENCOUNTER → 2021-12-26 15:01 | Outpatient (BNVA) | payer OTHER, SELFPAY | PROVIDERS: Visit Provider Advanced Practice Midwife | DX: O26.893 Other specified pregnancy related conditions, third trimester (principal); R51.9 Headache, unspecified | CPT/HCPCS: 81003; 99212 ==

== ENCOUNTER 2021-12-27 14:24 | Outpatient (REF) | payer OTHER, SELFPAY ==
[2021-12-27 15:53] LABS: Hematocrit 35.5 % (37.0-47.0); Hemoglobin 11.9 g/dl (12.0-16.0); Mean Corpuscular HGB Conc 33.5 g/dl (31.0-35.0); Mean Corpuscular Hemoglobin 30.4 pg (27.0-33.0); Mean Corpuscular Volume 90.6 fL (80.0-98.0); Mean Platelet Volume 9.3 fL (9.4-12.3); Platelet Count 266 X10*3/uL (160-400); Red Blood Count 3.92 X10*6/uL (4.20-5.50); Red Cell Distribution Width 13.4 % (11.0-16.0); White Blood Count 12.6 X10*3/uL (4.8-10.8)
[2021-12-27 16:05] LABS: Lactate Dehydrogenase 198 U/L (122-220)
[2021-12-27 17:00] LABS: Creatinine Urine 129.86 mg/dL; Protein/Creatinine Ratio, Ur 0.08 (<0.2); Total Protein Urine Random 11 mg/dL (<12)
[2021-12-27 18:03] LABS: Aspartate Amino Transferase 22 U/L (5-31); Estimated Glomerular Filt Rate > 60
[2021-12-27 18:15] LABS: Alanine Aminotransferase 28 U/L (0-31); Albumin Level 3.6 g/dL (3.5-5.0); Alkaline Phosphatase 108 U/L (39-117); Bilirubin Direct 0.2 mg/dL (0.0-0.5); Bilirubin Total 0.4 mg/dL (0.0-1.0); Total Protein 6.2 g/dL (6.5-8.0)
== END 2021-12-27 14:25 | disposition home or self-care (01) ==
LOC: HO.LAB 14:24
PROVIDERS: Visit Provider Obstetrics & Gynecology
DX: O26.893 Other specified pregnancy related conditions, third trimester (principal); R51.9 Headache, unspecified; R10.11 Right upper quadrant pain; O36.8130 Decreased fetal movements, third trimester, not applicable or unspecified; O99.213 Obesity complicating pregnancy, third trimester; E66.01 Morbid (severe) obesity due to excess calories; Z86.19 Personal history of other infectious and parasitic diseases; Z3A.32 32 weeks gestation of pregnancy
CPT/HCPCS: 36415; 80076; 82565; 83615; 84156; 85027; 86850; 86870; 86885; 99212

== ENCOUNTER 2021-12-29 09:10 | Outpatient (REF) | payer OTHER, SELFPAY ==
[2021-12-29 10:13] LABS: Alanine Aminotransferase 22 U/L (0-31); Albumin Level 3.4 g/dL (3.5-5.0); Alkaline Phosphatase 103 U/L (39-117); Anion Gap 11 (12-20); Aspartate Amino Transferase 18 U/L (5-31); Bilirubin Total 0.4 mg/dL (0.0-1.0); Blood Urea Nitrogen 6 mg/dL (9-16); Calcium 8.8 mg/dL (8.4-10.2); Carbon Dioxide 22 mmol/L (22-29); Chloride 111 mmol/L (96-108); Cholesterol 204 mg/dL; Estimated Glomerular Filt Rate > 60; Glucose Fasting 82 mg/dL (60-99); HDL Cholesterol 69 mg/dL; LDL Cholesterol Calculated 114 mg/dl; Sodium 140 mmol/L (135-145); Total Protein 5.8 g/dL (6.5-8.0); Triglycerides 109 mg/dL
[2022-01-02 12:17] LABS: Lamotrigine Lamictal <0.5 mcg/mL (4.0-18.0)
== END 2021-12-29 09:11 | disposition home or self-care (01) ==
LOC: HO.LAB 09:10
PROVIDERS: Visit Provider Nurse Practitioner Psychiatric/Mental Health
DX: F31.89 Other bipolar disorder (principal); Z79.899 Other long term (current) drug therapy
CPT/HCPCS: 36415; 80053; 80061; 80175

== ENCOUNTER 2021-12-30 12:51 | Outpatient (REF) | payer OTHER, SELFPAY ==
--- NOTE | ~2021-12-30 | US_ITS ---
EXAMINATION: OBSTETRICAL ULTRASOUND, Follow up HISTORY: 21-year-old at the 33.6 weeks of gestation High BMI COMPARISON: 09/16/2021 TECHNIQUE: Real time transabdominal imaging with color and M-mode Doppler. PRESENTATION: Vertex PLACENTA LOCATION: Posterior without previa AMNIOTIC FLUID: GENESIS 13.9 MEASUREMENTS: 1. Biparietal Diameter: 8.4 cm; 33.6 wks 2. Head Circumference: 30.9 cm; 34.4 wks 3. Abdominal Circumference: 29.0 cm; 33.1 wks 4. Femur Length: 6.5 cm; 33.3 wks 5. Heart Rate: 155 beats per minute WEIGHT: Estimated weight is 2170 grams (4 lbs 13 oz) -- 39 %. Normal views of lateral cerebral ventricle, profile, nose/lips, 4ch view, LVOT, RVOT, gender. GESTATIONAL AGE: 1. Established GA: 33.3 wks 2. GA from [facility]: 33.6 wks ESTIMATED DATE OF DELIVERY: 1. Established DIANNE: 02/14/2022 2. DIANNE from [facility]: 02/11/2022 BIOPHYSICAL PROFILE: Motion: 2 Tone: 2 Breathin Amniotic Fluid: 2 The total biophysical score is 8/8 US/US OB follow up IMPRESSION: 1. A single fetus with appropriate biometry is seen in vertex presentation. 2. Size equals dates 3. Normal BPP and GENESIS. I reviewed the limitations of ultrasound and estimating weights. Gave her reassurance. RECOMMENDATIONS: 1. She is scheduled for weekly surveillance due to high BMI. Thank you very much for this referral. This note was generated with a voice recognition program. Please excuse any errors which may have been overlooked during my review of this note. Sometimes these errors may affect the content or meaning of a given sentence.
== END 2021-12-30 12:52 | disposition home or self-care (01) ==
LOC: HO.US 12:51
PROVIDERS: Visit Provider Advanced Practice Midwife
DX: O99.213 Obesity complicating pregnancy, third trimester (principal); E66.01 Morbid (severe) obesity due to excess calories; Z3A.33 33 weeks gestation of pregnancy
CPT/HCPCS: 76816

== ENCOUNTER → 2022-01-03 12:55 | Outpatient (BNVA) | payer OTHER, SELFPAY | PROVIDERS: Visit Provider Obstetrics & Gynecology | DX: Z34.83 Encounter for supervision of other normal pregnancy, third trimester (principal); Z3A.33 33 weeks gestation of pregnancy | CPT/HCPCS: 99212 ==

== ENCOUNTER 2022-01-06 14:20 | Outpatient (REF) | payer OTHER, SELFPAY ==
--- NOTE | ~2022-01-06 | US_ITS ---
EXAMINATION: US OBSTETRICAL (BIOPHYSICAL PROFILE) CLINICAL INFORMATION: 21-year-old at the 34.3 weeks of gestation High BMI COMPARISON: 12/30/2021 TECHNIQUE: Biophysical profile is performed over 30 minutes with assessment of breathing, gross body movement, tone, and qualitative amniotic fluid volume. FINDINGS: POSITION: Cephalic PLACENTA: Posterior without previa AMNIOTIC FLUID INDEX: 14 cm CARDIAC ACTIVITY: 140 beats per minute BIOPHYSICAL PROFILE: Motion: 2 Tone: 2 Breathin Amniotic Fluid: 2 The total biophysical score is 8/8 US/US OB biophysical profile IMPRESSION: 1. Single intrauterine gestation in vertex position. 2. Reassuring BPP and GENESIS Thank you for allowing me to participate in her care. This note was generated with a voice recognition program. Please excuse any errors which may have been overlooked during my review of this note. Sometimes these errors may affect the content or meaning of a given sentence.
== END 2022-01-06 14:21 | disposition home or self-care (01) ==
LOC: HO.US 14:20
PROVIDERS: Visit Provider Obstetrics & Gynecology
DX: O99.213 Obesity complicating pregnancy, third trimester (principal); E66.01 Morbid (severe) obesity due to excess calories; Z3A.34 34 weeks gestation of pregnancy
CPT/HCPCS: 76819

== ENCOUNTER 2022-07-09 06:56 | Emergency (ER) | payer OTHER, SELFPAY ==
--- NOTE | ~2022-07-09 | US_ITS ---
EXAMINATION: US PELVIS CLINICAL INFORMATION: Pelvic pain COMPARISON: None TECHNIQUE: Ultrasound of the pelvis is performed using both transabdominal and transvaginal transducers along with Doppler. Transvaginal imaging is performed due to inadequate visualization transabdominally. FINDINGS: The uterus is anteverted and measures 8.7 x 3.7 x 5.1 cm in dimension. There is an IUD in the uterus. This appears low in position the lower uterine segment and cervix. Endometrial thickness is normal measuring 0.5 cm. No focal uterine lesion is seen. The ovaries are normal. The right ovary measures 5.8 x 1.5 x 2.4 cm. The left ovary measures 3.1 x 1.6 x 2.3 cm. There is no fluid in the pelvis. US/US pelvic and transvaginal IMPRESSION: Low position of the IUD in the lower uterine segment and cervix.
--- NOTE | ~2022-07-09 | CT_ITS ---
EXAMINATION: CT ABDOMEN AND PELVIS WITHOUT CONTRAST CLINICAL INFORMATION: Left lower quadrant pain and tenderness and vomiting. COMPARISON: None TECHNIQUE: Multidetector volumetric imaging was performed from the superior aspect of the liver through the pubic symphysis. Sagittal and coronal reformatted images were obtained on the technologist's workstation. This CT examination was performed using dose optimization techniques as appropriate, variously including the following: *Automated exposure control *Adjustment of mA and/or kV according to patient size (this includes techniques or standardized protocols for targeted exams where dose is matched to indication/reason for exam; i.e. extremities or head) *Use of iterative reconstruction technique DLP: 1168 mGy-cm FINDINGS: LUNG BASES: The visualized lung bases are unremarkable. LIVER, GALLBLADDER, AND BILIARY TREE: The liver is normal in size, shape, and attenuation. No focal hepatic lesion or biliary ductal dilatation is present. The gallbladder is unremarkable with no evidence of radiopaque gallstones, gallbladder wall thickening, or obvious pericholecystic inflammatory changes. PANCREAS: Unremarkable. SPLEEN: Unremarkable. ADRENAL GLANDS: Unremarkable. KIDNEYS AND URETERS: The kidneys are normal in size, shape, and attenuation. No hydronephrosis, hydroureter, or calculi seen. No perinephric stranding. BLADDER: Unremarkable. GASTROINTESTINAL TRACT: The small and large bowel are unremarkable. The appendix is unremarkable. ABDOMINAL WALL: No significant hernia is appreciated. LYMPH NODES: Normal. VASCULAR: Unremarkable. PELVIC VISCERA: Intrauterine contraceptive device is present within the uterus projecting within the lower uterine segment region. No evidence of any adnexal mass present. No free fluid and/or free air. OSSEOUS STRUCTURES: Unremarkable. CT/CT abdomen pelvis wo con IMPRESSION: No CT evidence of any acute intra-abdominal and/or intrapelvic pathology is present. Fleischner guidelines were followed.
--- NOTE | ~2022-07-09 | US_ITS ---
EXAMINATION: US PELVIS CLINICAL INFORMATION: Pelvic pain COMPARISON: None TECHNIQUE: Ultrasound of the pelvis is performed using both transabdominal and transvaginal transducers along with Doppler. Transvaginal imaging is performed due to inadequate visualization transabdominally. FINDINGS: The uterus is anteverted and measures 8.7 x 3.7 x 5.1 cm in dimension. There is an IUD in the uterus. This appears low in position the lower uterine segment and cervix. Endometrial thickness is normal measuring 0.5 cm. No focal uterine lesion is seen. The ovaries are normal. The right ovary measures 5.8 x 1.5 x 2.4 cm. The left ovary measures 3.1 x 1.6 x 2.3 cm. There is no fluid in the pelvis. US/US pelvic ovarian doppler IMPRESSION: Low position of the IUD in the lower uterine segment and cervix.
[2022-07-09 07:03] VITALS: BP 125/83; PULSE 80; RESP 18; TEMP 36; O2SAT 97; BMI 46.4
--- NOTE | 2022-07-09 08:05 | ED_ITS ---
HPI - Abdominal Pain General Chief Complaint: Abdominal Pain Stated Complaint: Abd pain Time Seen by Provider: 07/09/22 07:06 Source: patient Mode of arrival: ambulatory Limitations: no limitations History of Present Illness HPI narrative: 22 yo female presents to the ER with 2 weeks of post-prandial vomiting and d iarrhea along with new onset LLQ abdominal pain that started 2 days ago. She reports the pain is constant, is sharp and cramping and at times double sore over in pain. She has tried Maalox and Zofran with minimal improvement. She has no fever or chills. No urinary symptoms. She denies chance of , she has an IUD in place and recently gave in January. She reports her diarrhea is loose, nonbloody. She denies any pelvic pain, vaginal discharge or vaginal bleeding. MD elicited complaint: abdominal pain Pertinent past history: none Onset (ago): week(s) Pain Consistency: intermittent Location: LLQ Severity: moderate Pain scale (0-10): 6 Quality: cramping, stabbing and sharp Radiation: none Migration to: no migration Exacerbating factors: eating Relieving factors: nothing Associated symptoms: nausea, vomiting, diarrhea and chills Related Data Home Medications Medication Instructions Recorded Confirmed lamotrigine 100 mg tablet 100 mg PO DAILY 11/09/20 08/21/21 lamotrigine 25 mg tablet 25 mg PO DAILY 11/09/20 08/21/21 aripiprazole 5 mg tablet 5 mg PO DAILY 06/15/21 08/21/21 Previous Rx's Medication Instructions Recorded vitamin with calcium 1 tab PO DAILY #30 tabs 06/15/21 no.72-iron 27 mg-folic acid 1 mg tablet ( Vitamins Plus Low Iron) aspirin 81 mg chewable tablet 162 mg PO DAILY #60 tabs 08/17/21 (Aspirin Childrens) promethazine 25 mg rectal 25 mg MD Q6H PRN nausea and 07/09/22 suppository vomiting #12 ea promethazine 25 mg tablet 25 mg PO TID PRN nausea and 07/09/22 vomiting #20 tabs Allergies Allergy/AdvReac Type Severity Reaction Status Date / Time No Known Allergies Allergy Verified 12/26/21 15:13 [No Known Allergies*] Review of Systems Review of Systems Constitutional: No Fever, + Chills ENT/Mouth: No sore throat, No Rhinorrhea, No Swallowing Difficulty Cardiovascular: No Chest Pain, No SOB, No Orthopnea, No Edema Respiratory: No Cough, No Sputum, No Wheezing, No dyspnea Gastrointestinal: + Nausea, + Vomiting, + Diarrhea, + abdominal Pain, No Hematochezia, No Melena Genitourinary: No Dysuria, No Urinary Frequency, No Hematuria Musculoskeletal: No joint pain, No Myalgias Skin: No Skin Lesions, No rash Neuro: + Weakness, No Numbness, No Dizziness, No Headache Psych: No Anxiety/Panic, No Depression Heme/Lymph: No Bruising, No Lymphadenopathy Endocrine: No Polyuria, No Polydipsia PMFSH Past Medical History Medical History Asthma Bipolar 2 disorder Herpes simplex type 1 infection Herpes simplex type 2 infection Morbid obesity with body mass index (BMI) of 40.0 to 44.9 in adult Surgical History H/O wisdom tooth extraction Family History Family History Mother No problems noted. Father No problems noted. Maternal Grandmother Diabetes mellitus Maternal Grandfather Esophageal cancer Paternal Grandmother Lung cancer Paternal Grandfather Colon cancer Social History Social History Household Members: Family Housing: House Are you a primary director career services to a significant other at home: No Do you presently have visiting nurse or other home services: No Alcohol intake: former Patient Tobacco Use Status: Never used Tobacco Use of substances other than those prescribed or required for medical reasons: No Advance Directives: No Advance Directives Information Provided: Yes Patient : No service: No Current occupational status: employed 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 Oriented X3. No acute distress. Eyes: Pupils equal, round and reactive to light. ENT: Pharynx normal. Neck: Normal inspection. Neck supple. CVS: Normal heart rate and rhythm. Pulses normal. Respiratory: No respiratory distress. Breath sounds normal. Abdomen:Obese, soft, LLQ tenderness with guarding, +BS x4. Pelvic deferred Skin: Skin warm and dry. Normal skin color. Normal skin turgor. No rashes. Extremities: No lower extremity edema. Neuro: Oriented X 3. No motor deficit. No sensory deficit. Course Course Course Narrative: 22 yo female presenting with postprandial vomiting x2 weeks along with 2 days of LLQ abdominal pain and diarrhea. Exam is consistent with LLQ tenderness, possible diverticulitis. Will get labs and CT scan for further evaluation. IVF, zofran ordered. Will reassess Reevaluation(s) Reevaluation #1: Labs show mild leukocytosis 12.6K, which is stable from prior and most likely reactive d/t vomiting. She continues to complain of nausea, given IV Phenergan. Labs showing no CT evidence of acute intra-abdominal and or intrapelvic pathology present. Patient was given p.o. trial. Will reassess. Reevaluation #2: After eating crackers and Jell-O, patient was dry heaving and felt very nauseous. IV Reglan & Benadryl have been ordered. Utox added and is negative. Reevaluation #3: Pelvic ultrasound showing IUD in the lower portion of the uterus. No adnexal abnormalities patient's pain is improved. She is tolerating p.o. she ate roast beef sandwich. She had a very small amount of vomiting afterwards, much improved from her prior. She is feeling adequate enough at this time to go home. Will plan to prescribe her p.r.n. p.o. Phenergan as needed for nausea. Recommended liquid diet for the next 24 hours, and follow-up with GI for further evaluation if symptoms persist. She is stable for discharge home, agrees with plan. MDM - Abdominal Pain Lab Data Result diagrams: 07/09/22 09:10 07/09/22 09:10 Labs: Lab Results 07/09/22 07/09/22 07/09/22 Range/Units 09:09 09:09 09:10 WBC 12.6 H (4.8-10.8) X10*3/uL RBC 4.50 (4.20-5.50) X10*6/uL Hgb 12.6 (12.0-16.0) g/dl Hct 38.1 (37.0-47.0) % MCV 84.7 (80.0-98.0) fL MCH 28.0 (27.0-33.0) pg MCHC 33.1 (31.0-35.0) g/dl RDW 13.8 (11.0-16.0) % Plt Count 266 (160-400) X10*3/uL MPV 8.8 L (9.4-12.3) fL Immature Gran % (Auto) 0.4 (0.0-0.4) % Neut % (Auto) 71.5 (45-73) % Lymph % (Auto) 20.3 (20-40) % [place] % (Auto) 6.1 (2-11) % Eos % (Auto) 1.4 (0-4) % Baso % (Auto) 0.3 (0-2) % Lymph # (Auto) 2.6 (1.2-4.9) X10*3/uL [place] # (Auto) 0.8 (0.1-1.2) X10*3/uL Eos # (Auto) 0.2 (0.0-0.4) X10*3/uL Baso # (Auto) 0.0 (0.0-0.2) X10*3/uL Abs Immat Gran (auto) 0.05 H (0.00-0.03) X10*3/uL Absolute Neuts (auto) 9.0 H (2.0-8.3) x10*3/uL Absolute Nucleated RBC 0.000 (0.0-0.012) X10*3/uL Nucleated RBC % (auto) 0.0 (0.0-0.2) /100WBC Sodium (135-145) mmol/L Potassium (3.3-5.1) mmol/L Chloride (96-108) mmol/L Carbon Dioxide (22-29) mmol/L Anion Gap (12-20) BUN (9-16) mg/dL Creatinine (0.5-1.4) mg/dL Estim Creat Clear Calc Estimated GFR Random Glucose (60-115) mg/dL Calcium (8.4-10.2) mg/dL Magnesium (1.6-2.6) mg/dL Total Bilirubin (0.0-1.0) mg/dL Direct Bilirubin (0.0-0.5) mg/dL AST (5-31) U/L ALT (0-31) U/L Alkaline Phosphatase (39-117) U/L Total Protein (6.5-8.0) g/dL Albumin (3.5-5.0) g/dL Urine Color Urine Appearance Urine pH (5.0-8.0) Ur Specific [place] (1.005-1.025) Urine Protein (NEG-TRACE) MG/DL Urine Glucose (UA) (NEG) MG/DL Urine Ketones (NEG) MG/DL Urine Blood (NEG) Urine Nitrite (NEG) Ur Leukocyte Esterase (NEG) Urine Test NEGATIVE (NEGATIVE) Urine Opiates Screen (Not Detect) Urine Fentanyl Screen (Not Detect) Ur Barbiturates Screen (Not Detect) Ur Phencyclidine Scrn (Not Detect) Ur Amphetamines Screen (Not Detect) U Benzodiazepines Scrn (Not Detect) Urine Cocaine Screen (Not Detect) U Marijuana (THC) Screen (Not Detect) COVID-19 ([facility]) Negative (Negative) COVID-19 Clin Com See Note 07/09/22 07/09/22 07/09/22 Range/Units 09:10 09:10 09:12 WBC (4.8-10.8) X10*3/uL RBC (4.20-5.50) X10*6/uL Hgb (12.0-16.0) g/dl Hct (37.0-47.0) % MCV (80.0-98.0) fL MCH (27.0-33.0) pg MCHC (31.0-35.0) g/dl RDW (11.0-16.0) % Plt Count (160-400) X10*3/uL MPV (9.4-12.3) fL Immature Gran % (Auto) (0.0-0.4) % Neut % (Auto) (45-73) % Lymph % (Auto) (20-40) % [place] % (Auto) (2-11) % Eos % (Auto) (0-4) % Baso % (Auto) (0-2) % Lymph # (Auto) (1.2-4.9) X10*3/uL [place] # (Auto) (0.1-1.2) X10*3/uL Eos # (Auto) (0.0-0.4) X10*3/uL Baso # (Auto) (0.0-0.2) X10*3/uL Abs Immat Gran (auto) (0.00-0.03) X10*3/uL Absolute Neuts (auto) (2.0-8.3) x10*3/uL Absolute Nucleated RBC (0.0-0.012) X10*3/uL Nucleated RBC % (auto) (0.0-0.2) /100WBC Sodium 140 (135-145) mmol/L Potassium 4.5 (3.3-5.1) mmol/L Chloride 105 (96-108) mmol/L Carbon Dioxide 23 (22-29) mmol/L Anion Gap 17 (12-20) BUN 10 D (9-16) mg/dL Creatinine 0.68 (0.5-1.4) mg/dL Estim Creat Clear Calc 170.8 Estimated GFR > 60 Random Glucose 96 (60-115) mg/dL Calcium 8.9 (8.4-10.2) mg/dL Magnesium 1.9 (1.6-2.6) mg/dL Total Bilirubin 0.6 (0.0-1.0) mg/dL Direct Bilirubin 0.2 (0.0-0.5) mg/dL AST 24 (5-31) U/L ALT 24 (0-31) U/L Alkaline Phosphatase 116 (39-117) U/L Total Protein 7.5 D (6.5-8.0) g/dL Albumin 4.5 D (3.5-5.0) g/dL Urine Color YELLOW Urine Appearance CLEAR Urine pH 5.5 (5.0-8.0) Ur Specific [place] 1.010 (1.005-1.025) Urine Protein NEG (NEG-TRACE) MG/DL Urine Glucose (UA) NEG (NEG) MG/DL Urine Ketones NEG (NEG) MG/DL Urine Blood NEG (NEG) Urine Nitrite NEG (NEG) Ur Leukocyte Esterase NEG (NEG) Urine Test (NEGATIVE) Urine Opiates Screen Not Detected (Not Detect) Urine Fentanyl Screen Not Detected (Not Detect) Ur Barbiturates Screen Not Detected (Not Detect) Ur Phencyclidine Scrn Not Detected (Not Detect) Ur Amphetamines Screen Not Detected (Not Detect) U Benzodiazepines Scrn Not Detected (Not Detect) Urine Cocaine Screen Not Detected (Not Detect) U Marijuana (THC) Screen Not Detected (Not Detect) COVID-19 ([facility]) (Negative) COVID-19 Clin Com Discharge Plan Discharge Clinical Impression: Nausea & vomiting Patient Disposition: Home, Self-Care Instructions: Acute Nausea and Vomiting (ED) Additional Instructions: Your lab workup today was unremarkable. Your CT scan was normal. Your pelvic ultrasound showed your IUD in the lower portion of your uterus. Your test was negative. Recommend liquid diet for the next 48 hours. Slowly reintroduce bland foods like toast and applesauce. Recommend following up with GI for further evaluation. Recommend taking the prescribed nausea medications as needed. If you develop new or worsening symptoms call 911 or come back to the ER for further evaluation. Prescriptions: New promethazine 25 mg tablet 25 mg PO TID PRN (Reason: nausea and vomiting) Qty: 20 0RF promethazine 25 mg suppository 25 mg MD Q6H PRN (Reason: nausea and vomiting) Qty: 12 0RF No Action lamotrigine 100 mg tablet 100 mg PO DAILY lamotrigine 25 mg tablet 25 mg PO DAILY aripiprazole 5 mg tablet 5 mg PO DAILY Vitamin Plus Low Iron 27 mg iron- 1 mg tablet 1 tab PO DAILY Qty: 30 11RF aspirin [Aspirin Childrens] 81 mg tablet,chewable 162 mg PO DAILY Qty: 60 7RF Rx Instructions: start 2 tabs daily at bedtime at 14-16weeks and continue daily until 2 weeks Referrals: Kevin Kemp MD [Physician] - (postprandial vomiting) Stand Alone Forms: Work/School Release
[2022-07-09 08:45] VITALS: BP 126/77; PULSE 69; RESP 20; TEMP 36.6; O2SAT 99
[2022-07-09 09:15] LABS: MANUAL DIFF FLAG NO
[2022-07-09 09:16] LABS: Basophils Percent Auto 0.3 % (0-2); Eosinophils Absolute Auto 0.2 X10*3/uL (0.0-0.4); Eosinophils Percent Auto 1.4 % (0-4); Hematocrit 38.1 % (37.0-47.0); Hemoglobin 12.6 g/dl (12.0-16.0); Imm Gran Abs Auto 0.05 X10*3/uL (0.00-0.03); Imm Gran Pct Auto 0.4 % (0.0-0.4); Lymphocytes Absolute Auto 2.6 X10*3/uL (1.2-4.9); Lymphocytes Percent Auto 20.3 % (20-40); Mean Corpuscular HGB Conc 33.1 g/dl (31.0-35.0); Mean Corpuscular Volume 84.7 fL (80.0-98.0); Mean Platelet Volume 8.8 fL (9.4-12.3); Monocytes Absolute Auto 0.8 X10*3/uL (0.1-1.2); Monocytes Percent Auto 6.1 % (2-11); Neutrophils Percent Auto 71.5 % (45-73); Platelet Count 266 X10*3/uL (160-400); Red Cell Distribution Width 13.8 % (11.0-16.0); White Blood Count 12.6 X10*3/uL (4.8-10.8)
[2022-07-09 09:20] LABS: UPreg QC Valid YES; Urine Pregnancy NEGATIVE (NEGATIVE)
[2022-07-09 09:20] LABS: Appearance Urine CLEAR; Color Urine YELLOW; Glucose Urine UA NEG (NEG); Leukocyte Esterase Urine NEG (NEG); Nitrite Urine NEG (NEG); PH 5.5 (5.0-8.0); Urine Blood NEG (NEG); Urine Ketones NEG (NEG); Urine Protein NEG (NEG-TRACE)
[2022-07-09 09:23] VITALS: RESP 18
[2022-07-09] MEDS: ondansetron HCL 4 MG/2 ML VIAL IVPUSH (09:23)
[2022-07-09] MEDS: Morphine Sulfate 4 MG/ML CARTRIDGE IVPUSH ×2 (09:23→13:03)
[2022-07-09] MEDS: 0.9 % Sodium Chloride 1,000 ML 999 ML IVCONT ×2 (09:25→12:27)
[2022-07-09 09:38] LABS: COVID-19 Test Negative (Negative)
[2022-07-09 09:44] LABS: Alanine Aminotransferase 24 U/L (0-31); Albumin Level 4.5 g/dL (3.5-5.0); Alkaline Phosphatase 116 U/L (39-117); Anion Gap 17 (12-20); Aspartate Amino Transferase 24 U/L (5-31); Bilirubin Direct 0.2 mg/dL (0.0-0.5); Bilirubin Total 0.6 mg/dL (0.0-1.0); Blood Urea Nitrogen 10 mg/dL (9-16); Calcium 8.9 mg/dL (8.4-10.2); Carbon Dioxide 23 mmol/L (22-29); Chloride 105 mmol/L (96-108); Creatinine Clr Calc Pharmacy 170.8; Estimated Glomerular Filt Rate > 60; Glucose Random 96 mg/dL (60-115); Magnesium 1.9 mg/dL (1.6-2.6); Potassium 4.5 mmol/L (3.3-5.1); Sodium 140 mmol/L (135-145); Total Protein 7.5 g/dL (6.5-8.0)
[2022-07-09 10:56] VITALS: BP 118/59; PULSE 74; RESP 18; O2SAT 99
[2022-07-09 11:26] VITALS: BP 111/55; PULSE 80; RESP 16; O2SAT 97
[2022-07-09] MEDS: Metoclopramide HCl 10 MG/2 ML VIAL IVPUSH (12:21)
[2022-07-09 13:42] LABS: Amphetamine Screen Urine Not Detected (Not Detect); Barbiturates, Urine Not Detected (Not Detect); Benzodiazepines Screen Urine Not Detected (Not Detect); Cannabinoid Screen Urine Not Detected (Not Detect); Cocaine Screen Urine Not Detected (Not Detect); Fentanyl, urine Not Detected (Not Detect); Opiate Screen Urine Not Detected (Not Detect); Phencyclidine Screen Urine Not Detected (Not Detect)
[2022-07-09] MEDS: diphenhydrAMINE HCL 50 MG/ML VIAL IVPUSH (14:19)
== END 2022-07-09 15:55 | disposition home or self-care (01) ==
PROVIDERS: Physician Assistant; Emergency Provider Student in an Organized Health Care Education/Training Program
DX: R10.32 Left lower quadrant pain (principal); R11.2 Nausea with vomiting, unspecified; Z20.822 Contact with and (suspected) exposure to COVID-19; Z79.899 Other long term (current) drug therapy
CPT/HCPCS: 36415; 74176; 76830; 76856; 80048; 80076; 80307; 81003; 81025; 83735; 85025; 87635; 93975; 96365; 96366; 96375; 96376; 99284; J1200; J2270; J2405; J2550; J2765

== ENCOUNTER 2022-08-14 17:06 | Emergency (ER) | payer OTHER, SELFPAY ==
--- NOTE | ~2022-08-14 | CT_ITS ---
EXAMINATION: CT ABDOMEN AND PELVIS WITHOUT CONTRAST CLINICAL INFORMATION: Back pain. kidney stones? Pyelonephritis? COMPARISON: 07/09/2022 TECHNIQUE: Multidetector volumetric imaging was performed from the lung bases through the pubic symphysis. Sagittal and coronal reformatted images were obtained on the technologist workstation. This CT examination was performed using dose optimization techniques as appropriate, variously including the following: *Automated exposure control *Adjustment of mA and/or kV according to patient size (this includes techniques or standardized protocols for targeted exams where dose is matched to indication/reason for exam; i.e. extremities or head) *Use of iterative reconstruction technique Total exam dose-length product 1225 mGy-cm FINDINGS: The lack of intravenous contrast limits evaluation of the solid visceral organs including the liver, spleen, pancreas, and kidneys. LUNG BASES: The visualized lung bases are unremarkable. LIVER, GALLBLADDER, AND BILIARY TREE: Limited non-contrast evaluation is normal. No gross focal hepatic lesion. Normal liver size and contour. No gross biliary ductal dilation. The gallbladder is unremarkable with no evidence of radiopaque gallstones, gallbladder wall thickening, or obvious pericholecystic inflammatory changes. PANCREAS: Limited non-contrast evaluation is normal. No pérez-pancreatic fluid. SPLEEN: Limited non-contrast evaluation is normal. ADRENAL GLANDS: Normal; no adrenal mass. KIDNEYS AND URETERS: Limited non-contrast evaluation is normal. No hydronephrosis, hydroureter, or calculi seen. No perinephric stranding. GASTROINTESTINAL TRACT: Small bowel and colon are non-dilated. No bowel wall thickening. No pericolonic inflammatory changes to suggest colitis or diverticulitis. ABDOMINAL WALL: No hernia seen. LYMPH NODES: No pathologically enlarged lymph nodes in the abdomen or pelvis. VASCULAR: Normal caliber abdominal aorta. BLADDER: Unremarkable. PELVIC VISCERA: IUD seen centrally in the uterus. No adnexal mass. OSSEOUS STRUCTURES: No acute or suspicious osseous abnormalities. CT/CT abdomen pelvis wo IV con IMPRESSION: No calculi or hydronephrosis seen. Noncontrast CT has limited utility in identifying pyelonephritis.
[2022-08-14 17:18] VITALS: BP 160/90; PULSE 91; RESP 18; TEMP 36.7; O2SAT 97; BMI 47.4
--- NOTE | 2022-08-14 19:03 | ED.GENADULT ---
HPI - General Adult General Chief complaint: Back Pain/Injury Stated complaint: back inj Time Seen by Provider: 08/14/22 17:45 Source: patient Mode of arrival: ambulatory Limitations: no limitations History of Present Illness HPI narrative: 22-year-old female presents to ED for right-sided back pain radiating down legs for the past couple of days. Patient states history of back issues due to fall lastly year at work, but couple of days ago while bending down she heard a pop in her back ever since has had pain on range of motion. Patient states no dysuria, hematuria, flank pain, fever, chills, nausea, vomiting, vaginal bleeding, or abdominal pain. Patient denies any recent trauma Related Data Home Medications Medication Instructions Recorded Confirmed lamotrigine 100 mg tablet 100 mg PO DAILY 11/09/20 08/02/22 lamotrigine 25 mg tablet 25 mg PO DAILY 11/09/20 08/02/22 sertraline 100 mg tablet (Zoloft) 100 mg PO DAILY 08/02/22 08/02/22 aripiprazole 5 mg tablet 10 mg PO DAILY 08/07/22 Previous Rx's Medication Instructions Recorded psyllium 1 tbsp PO DAILY 30 days #300 grams 08/07/22 omeprazole 40 mg capsule,delayed 40 mg PO DAILY #90 caps 08/08/22 release cefuroxime axetil 250 mg tablet 250 mg PO Q12H 7 days #14 tabs 08/14/22 cyclobenzaprine 10 mg tablet 10 mg PO TID PRN muscle spasm 7 08/14/22 days #21 tabs ketorolac 10 mg tablet 10 mg PO QID PRN pain 5 days #20 08/14/22 tabs Allergies Allergy/AdvReac Type Severity Reaction Status Date / Time No Known Drug Allergies Allergy Unknown None Verified 08/14/22 17:18 Review of Systems Review of Systems: back pain Yes all other systems are reviewed and are negative PMFSH Past Medical History Medical History Asthma Bipolar 2 disorder Herpes simplex type 1 infection Herpes simplex type 2 infection Morbid obesity with body mass index (BMI) of 40.0 to 44.9 in adult Surgical History H/O wisdom tooth extraction Hx of section Family History Family History Mother No problems noted. Father No problems noted. 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 [employer] Current occupational exposures/hazards: No Sexual orientation: Straight/Heterosexual Gender identity: Female Physical Exam ED Vital Signs: Vital Signs - 24 hr 08/14/22 17:18 Temperature 98.0 F Pulse Rate 91 Respiratory Rate 18 Blood Pressure 160/90 H Pulse Oximetry 97 Oxygen Delivery Method Room Air BMI result Body Mass Index 47.4 Const General: cooperative, healthy appearing, comfortable, no acute distress, well developed, alert, awake and Physically active Orientation/consciousness: oriented to time and patient oriented x3 HENMT Head: Yes normal to inspection, Yes No palpable skull fracture present, Yes normocephalic, Yes atraumatic and No abrasion Eyes General: appearance normal, both eyes and all related structures Neck Neck: Yes normal visual inspection, Yes full ROM, Yes no lymphadenopathy, Yes no meningeal signs, Yes trachea midline, Yes supple, No anterior neck swelling and No tender Chest Chest palpation & inspection: normal inspection of the chest and normal palpation of entire chest wall Resp Effort & Inspection: normal respiratory effort and able to speak in complete sentences Auscultation: clear to auscultation bilaterally Cardio Jugular venous distension: no JVD Heart sounds: S1 normal heart sound present and S2 normal heart sound present GI Inspection: Yes normal to inspection and No abdominal wall ecchymosis Palpation (GI): Soft to palpation, not firm, nontender, no guarding and not rigid General: No CVA tenderness and Yes no CVA tenderness Back/Spine/Pelvis Back: no CVA tenderness, No CVA tenderness and back tenderness (lumbar) Skin General skin exam: no rashes or lesions noted and elasticity normal Neuro General: oriented to time, patient oriented x3, gait normal, tone normal, moves all extremities, Normal light touch and pain sensation, no meningeal signs, no focal motor deficits, CN's II-XI intact bilaterally and deep tendon reflexes 2+ bilaterally Extrem General: Yes normal to inspection and Yes full ROM Psych Appearance: grossly normal, well kempt and not disheveled Course Course Course Narrative: Urine ordered. Most likely muscle spasm but due to patient being popping back was sent for a lumbar spine x-ray. Reevaluation(s) Reevaluation #1: UA showed a UTI so lab was drawn to make sure there was no signs of RHINA elevated white blood cell count. Patient was sent for CT scan to check for kidney stones and pyelonephritis was which came back negative. Spine on CT scan came back negative for any fractures. Patient will be discharged with antibiotics and also pain med with muscle relaxers and steroids. Time: 22:18 Medical Decision Making MDM Narrative Medical decision making narrative: Muscle spasm per UTI Lab Data Result diagrams: 08/14/22 21:02 08/14/22 21:02 Labs: Lab Results 08/14/22 08/14/22 08/14/22 Range/Units 19:53 19:53 21:02 WBC 13.3 H (4.8-10.8) X10*3/uL RBC 4.35 (4.20-5.50) X10*6/uL Hgb 12.3 (12.0-16.0) g/dl Hct 37.5 (37.0-47.0) % MCV 86.2 (80.0-98.0) fL MCH 28.3 (27.0-33.0) pg MCHC 32.8 (31.0-35.0) g/dl RDW 14.1 (11.0-16.0) % Plt Count 251 (160-400) X10*3/uL MPV 8.5 L (9.4-12.3) fL Immature Gran % (Auto) 0.5 H (0.0-0.4) % Neut % (Auto) 69.3 (45-73) % Lymph % (Auto) 21.4 (20-40) % [place] % (Auto) 7.1 (2-11) % Eos % (Auto) 1.4 (0-4) % Baso % (Auto) 0.3 (0-2) % Lymph # (Auto) 2.8 (1.2-4.9) X10*3/uL [place] # (Auto) 1.0 (0.1-1.2) X10*3/uL Eos # (Auto) 0.2 (0.0-0.4) X10*3/uL Baso # (Auto) 0.0 (0.0-0.2) X10*3/uL Abs Immat Gran (auto) 0.06 H (0.00-0.03) X10*3/uL Absolute Neuts (auto) 9.2 H (2.0-8.3) x10*3/uL Absolute Nucleated RBC 0.000 (0.0-0.012) X10*3/uL Nucleated RBC % (auto) 0.0 (0.0-0.2) /100WBC Sodium (135-145) mmol/L Potassium (3.3-5.1) mmol/L Chloride (96-108) mmol/L Carbon Dioxide (22-29) mmol/L Anion Gap (12-20) BUN (9-16) mg/dL Creatinine (0.5-1.4) mg/dL Estim Creat Clear Calc Estimated GFR Random Glucose (60-115) mg/dL Calcium (8.4-10.2) mg/dL Total Bilirubin (0.0-1.0) mg/dL AST (5-31) U/L ALT (0-31) U/L Alkaline Phosphatase (39-117) U/L Total Protein (6.5-8.0) g/dL Albumin (3.5-5.0) g/dL Urine Color Yellow Urine Appearance Clear Urine pH 5.5 (5.0-9.0) Ur Specific [place] 1.025 (1.005-1.025) Urine Protein Negative (Neg-Trace) mg/dL Urine Glucose (UA) Negative (Negative) mg/dL Urine Ketones Negative (Negative) mg/dL Urine Blood Negative (Negative) Urine Nitrite Negative (Negative) Ur Leukocyte Esterase Moderate (2+) H (Negative) Urine RBC 0-2 (0-2) /HPF Urine WBC >50 H (0-5) /HPF Ur Squamous Epith Cells 6-10 (0-2) /HPF Urine Bacteria 1+ (None Seen) Hyaline Casts 0-2 (0-2) /LPF Urine Test NEGATIVE (NEGATIVE) 08/14/22 Range/Units 21:02 WBC (4.8-10.8) X10*3/uL RBC (4.20-5.50) X10*6/uL Hgb (12.0-16.0) g/dl Hct (37.0-47.0) % MCV (80.0-98.0) fL MCH (27.0-33.0) pg MCHC (31.0-35.0) g/dl RDW (11.0-16.0) % Plt Count (160-400) X10*3/uL MPV (9.4-12.3) fL Immature Gran % (Auto) (0.0-0.4) % Neut % (Auto) (45-73) % Lymph % (Auto) (20-40) % [place] % (Auto) (2-11) % Eos % (Auto) (0-4) % Baso % (Auto) (0-2) % Lymph # (Auto) (1.2-4.9) X10*3/uL [place] # (Auto) (0.1-1.2) X10*3/uL Eos # (Auto) (0.0-0.4) X10*3/uL Baso # (Auto) (0.0-0.2) X10*3/uL Abs Immat Gran (auto) (0.00-0.03) X10*3/uL Absolute Neuts (auto) (2.0-8.3) x10*3/uL Absolute Nucleated RBC (0.0-0.012) X10*3/uL Nucleated RBC % (auto) (0.0-0.2) /100WBC Sodium 140 (135-145) mmol/L Potassium 4.5 (3.3-5.1) mmol/L Chloride 105 (96-108) mmol/L Carbon Dioxide 24 (22-29) mmol/L Anion Gap 16 (12-20) BUN 15 (9-16) mg/dL Creatinine 0.73 (0.5-1.4) mg/dL Estim Creat Clear Calc 161.2 Estimated GFR > 60 Random Glucose 69 (60-115) mg/dL Calcium 9.0 (8.4-10.2) mg/dL Total Bilirubin 0.3 (0.0-1.0) mg/dL AST 15 (5-31) U/L ALT 25 (0-31) U/L Alkaline Phosphatase 108 (39-117) U/L Total Protein 6.9 (6.5-8.0) g/dL Albumin 4.1 (3.5-5.0) g/dL Urine Color Urine Appearance Urine pH (5.0-9.0) Ur Specific [place] (1.005-1.025) Urine Protein (Neg-Trace) mg/dL Urine Glucose (UA) (Negative) mg/dL Urine Ketones (Negative) mg/dL Urine Blood (Negative) Urine Nitrite (Negative) Ur Leukocyte Esterase (Negative) Urine RBC (0-2) /HPF Urine WBC (0-5) /HPF Ur Squamous Epith Cells (0-2) /HPF Urine Bacteria (None Seen) Hyaline Casts (0-2) /LPF Urine Test (NEGATIVE) Discharge Plan Discharge Clinical Impression: Muscle spasm, UTI (urinary tract infection) Patient Disposition: Home, Self-Care Instructions: Urinary Tract Infection in Women (ED), Low Back Strain (ED), Muscle Spasm (ED) Additional Instructions: Urine came positive for infection. Abdominal CT scan came back negative for kidney stones. Negative for fractures of the spine. Due to bending down with pain on range of motion probably have a back strain or spasm. Will discharge with antibiotics, pain medication and muscle relaxer. Return to the ED for any fever, chills, nausea, vomiting, abdominal pain, dysuria, hematuria, flank pain, abdominal pain, urinary/bowel incontinence, paralysis of lower extremities, or any other concerning symptoms. Prescriptions: New cefuroxime axetil 250 mg tablet 250 mg PO Q12H 7 Days Qty: 14 0RF cyclobenzaprine 10 mg tablet 10 mg PO TID PRN (Reason: muscle spasm) 7 Days Qty: 21 0RF Rx Instructions: side effect is drowsiness. Do not take at work or while driving. ketorolac 10 mg tablet 10 mg PO QID PRN (Reason: pain) 5 Days Qty: 20 0RF Rx Instructions: Reciecved toradol 30mg IM in the ED. No Action omeprazole 40 mg capsule,delayed release(DR/EC) 40 mg PO DAILY Qty: 90 0RF lamotrigine 100 mg tablet 100 mg PO DAILY lamotrigine 25 mg tablet 25 mg PO DAILY aripiprazole 5 mg tablet 10 mg PO DAILY psyllium Powder 1 tbsp PO DAILY 30 Days Qty: 300 0RF Rx Instructions: mix into at least 8 oz of water or juice before administering sertraline [Zoloft] 100 mg tablet 100 mg PO DAILY Stand Alone Forms: Work/School Release Print Language: Polish
[2022-08-14 20:04] LABS: Appearance Urine Clear; Color Urine Yellow; Glucose Urine UA Negative (Negative); Leukocyte Esterase Urine Moderate (2+) (Negative); Nitrite Urine Negative (Negative); PH 5.5 (5.0-9.0); Specific Gravity - Urine 1.025 (1.005-1.025); UMIC TRIGGER UACC YES; Urine Blood Negative (Negative); Urine Ketones Negative (Negative); Urine Protein Negative (Neg-Trace)
[2022-08-14 20:08] LABS: UPreg QC Valid YES; Urine Pregnancy NEGATIVE (NEGATIVE)
[2022-08-14 20:25] LABS: Bacteria Urine 1+ (None Seen); Hyaline Casts Urine 0-2 /LPF (0-2); RBC Urine 0-2 /HPF (0-2); UACC Culture Trigger YES; WBC Urine >50 /HPF (0-5)
[2022-08-14 21:12] LABS: Basophils Percent Auto 0.3 % (0-2); Eosinophils Absolute Auto 0.2 X10*3/uL (0.0-0.4); Eosinophils Percent Auto 1.4 % (0-4); Hematocrit 37.5 % (37.0-47.0); Hemoglobin 12.3 g/dl (12.0-16.0); Imm Gran Abs Auto 0.06 X10*3/uL (0.00-0.03); Imm Gran Pct Auto 0.5 % (0.0-0.4); Lymphocytes Absolute Auto 2.8 X10*3/uL (1.2-4.9); Lymphocytes Percent Auto 21.4 % (20-40); MANUAL DIFF FLAG NO; Mean Corpuscular HGB Conc 32.8 g/dl (31.0-35.0); Mean Corpuscular Hemoglobin 28.3 pg (27.0-33.0); Mean Corpuscular Volume 86.2 fL (80.0-98.0); Mean Platelet Volume 8.5 fL (9.4-12.3); Monocytes Percent Auto 7.1 % (2-11); Neutrophils Absolute Auto 9.2 x10*3/uL (2.0-8.3); Neutrophils Percent Auto 69.3 % (45-73); Platelet Count 251 X10*3/uL (160-400); Red Blood Count 4.35 X10*6/uL (4.20-5.50); Red Cell Distribution Width 14.1 % (11.0-16.0); White Blood Count 13.3 X10*3/uL (4.8-10.8)
[2022-08-14] MEDS: Ketorolac Tromethamine 30 MG/ML VIAL IM (21:18)
[2022-08-14 21:26] LABS: Alanine Aminotransferase 25 U/L (0-31); Albumin Level 4.1 g/dL (3.5-5.0); Alkaline Phosphatase 108 U/L (39-117); Anion Gap 16 (12-20); Aspartate Amino Transferase 15 U/L (5-31); Bilirubin Total 0.3 mg/dL (0.0-1.0); Blood Urea Nitrogen 15 mg/dL (9-16); Carbon Dioxide 24 mmol/L (22-29); Chloride 105 mmol/L (96-108); Creatinine Clr Calc Pharmacy 161.2; Estimated Glomerular Filt Rate > 60; Glucose Random 69 mg/dL (60-115); Potassium 4.5 mmol/L (3.3-5.1); Sodium 140 mmol/L (135-145); Total Protein 6.9 g/dL (6.5-8.0)
== END 2022-08-14 23:11 | disposition home or self-care (01) ==
PROVIDERS: Physician Assistant; Emergency Provider Internal Medicine
DX: M62.830 Muscle spasm of back (principal); N39.0 Urinary tract infection, site not specified; E66.01 Morbid (severe) obesity due to excess calories; Z68.42 Body mass index [BMI] 45.0-49.9, adult
CPT/HCPCS: 36415; 74176; 80053; 81001; 81003; 81025; 85025; 87086; 96372; 99283; 99284; J1885

== ENCOUNTER 2022-08-23 10:04 | Outpatient (REF) | payer OTHER, SELFPAY ==
--- NOTE | ~2022-08-23 | XR_ITS ---
EXAMINATION: XR CHEST CLINICAL INFORMATION: Morbid obesity due to excess calories. COMPARISON: 03/13/2015 TECHNIQUE: 2 views of the chest were obtained. FINDINGS: The lungs are well expanded. There is no focal consolidation, edema, or effusion. No pneumothorax. The cardiomediastinal silhouette is within normal limits. No acute osseous abnormality. XR/XR chest 2V IMPRESSION: Clear lungs.
--- NOTE | 2022-08-23 10:27 | ECG_ITS ---
Test Reason : e66.01 Blood Pressure : / mmHG Vent. Rate : 096 BPM Atrial Rate : 096 BPM P-R Int : 132 ms QRS Dur : 084 ms QT Int : 342 ms P-R-T Axes : 070 034 022 degrees QTc Int : 432 ms Normal sinus rhythm Normal ECG When compared with ECG of 23-MAY-2006 15:25, PREVIOUS ECG IS PRESENT No significant change was found Referred By: Jin Garcia Electronically Signed By:JASIEL GLASGOW
[2022-08-23 11:05] LABS: Estimated Average Glucose 88 mg/dL; Hemoglobin A1c % 4.7 %
[2022-08-23 11:16] LABS: C Reactive Protein 1.41 mg/dL (< or = 0.50)
[2022-08-23 11:17] LABS: C Reactive Protein 1.44 mg/dL (< or = 0.50); Cholesterol 173 mg/dL; HDL Cholesterol 58 mg/dL; Iron 45 mcg/dL (30-160); LDL Cholesterol Calculated 97 mg/dl; Percent Iron Saturation 14 % (15-50); Total Iron Binding Capacity 328 mcg/dL (228-428); Triglycerides 93 mg/dL; Unsaturated Iron Binding 283 ug/dL
[2022-08-23 11:38] LABS: Ferritin 67 ng/mL (10-122); Insulin 49 uU/mL (2-29); TSH reflex Free T4 1.06 uIU/mL (0.32-4.0); Vitamin D 25-OH Total 27.4 ng/mL (>30)
[2022-08-23 12:06] LABS: Folate 9.6 ng/mL (> or = 4.0); Vitamin B12 497 pg/mL (200-900)
[2022-08-23 12:08] LABS: Folate 9.5 ng/mL (> or = 4.0); Vitamin B12 448 pg/mL (200-900)
[2022-08-24 12:22] LABS: Calcium (PTHI) 9.6 mg/dL (8.6-10.2); PTHI 29 pg/mL (16-77)
[2022-08-25 14:06] LABS: Immunoglobulin A 140 mg/dL (47-310)
[2022-08-25 19:56] LABS: Transglutaminase IgA <1.0 U/mL
[2022-08-26 05:12] LABS: Zinc 71 mcg/dL (60-130)
[2022-08-26 13:42] LABS: Vitamin B1 10 nmol/L (8-30)
[2022-08-28 16:26] LABS: Vitamin A 60 mcg/dL (38-98)
== END 2022-08-23 10:05 | disposition home or self-care (01) ==
LOC: HO.LAB 10:04
PROVIDERS: Absent Provider Internal Medicine; Visit Provider Physician Assistant Surgical
DX: E66.01 Morbid (severe) obesity due to excess calories (principal); R19.7 Diarrhea, unspecified
CPT/HCPCS: 36415; 71046; 80061; 82306; 82607; 82728; 82746; 82784; 83036; 83525; 83540; 83970; 84425; 84443; 84590; 84630; 86140; 86364; 93005

== ENCOUNTER 2022-09-12 00:56 | Outpatient (REF) | payer OTHER, SELFPAY ==
[2022-09-12 01:32] LABS: COVID-19 Test Negative (Negative)
== END 2022-09-12 00:57 | disposition home or self-care (01) ==
LOC: HO.LAB 00:56
PROVIDERS: Visit Provider Internal Medicine
DX: Z20.822 Contact with and (suspected) exposure to COVID-19 (principal)
CPT/HCPCS: 87635

== ENCOUNTER 2022-09-13 16:47 | Outpatient (REF) | payer OTHER, SELFPAY ==
[2022-09-14 14:19] LABS: H Pylori Breath Test Negative (Negative)
== END 2022-09-13 16:48 | disposition home or self-care (01) ==
LOC: HO.LNP 16:47
PROVIDERS: Visit Provider Physician Assistant Surgical
DX: E66.01 Morbid (severe) obesity due to excess calories (principal)
CPT/HCPCS: 83013

== ENCOUNTER → 2022-09-15 12:55 | Outpatient (BNVA) | payer OTHER, SELFPAY | PROVIDERS: Visit Provider Dietitian, Registered | DX: E66.9 Obesity, unspecified (principal) | CPT/HCPCS: 97802 ==

== ENCOUNTER → 2022-09-19 10:00 | Outpatient (BNVA) | payer OTHER, SELFPAY | PROVIDERS: Visit Provider Counselor Mental Health | DX: E66.01 Morbid (severe) obesity due to excess calories (principal); F31.81 Bipolar II disorder | CPT/HCPCS: 90791 ==

== ENCOUNTER 2022-09-22 09:28 | Outpatient (REF) | payer OTHER, SELFPAY ==
--- NOTE | ~2022-09-22 | FL_ITS ---
EXAMINATION: XR FLUOROSCOPY UPPER GI WITH AIR CLINICAL INFORMATION: Morbid severe obesity due to excess calories COMPARISON: CT abdomen pelvis 08/14/2022 TECHNIQUE: After swallowing effervescent granules, multiple fluoroscopic spot images were obtained in upright and prone position as the patient swallowed thick and thin barium. FINDINGS: The patient initiated swallowing normally. Normal appearance of the cervical esophagus. Normal primary peristalsis. No tertiary contractions. No fixed esophageal mucosal abnormality to suggest stricture or mass. No hiatal hernia. Normal appearance of the gastric mucosa. Normal distensibility. Normal appearance of the duodenal bulb and sweep. Gastric emptying is normal. FLUOROSCOPY TIME: 3.3 minutes DOSE AREA PRODUCT: 65.012 Gy-cm2 (padilla-centimeter squared) FL/FL upper GI w air IMPRESSION: Normal upper GI series.
--- NOTE | ~2022-09-22 | US_ITS ---
EXAMINATION: US COMPLETE ABDOMEN WITH LIVER ELASTOGRAPHY CLINICAL INFORMATION: Obesity COMPARISON: Previous CT of the abdomen and pelvis most recent July 2022 TECHNIQUE: Real-time imaging of the abdominal viscera. Noninvasive ultrasound liver fibrosis assessment is performed using Bets[employer] ElastPQ point quantification shear wave elastography (2D-SWE) with a C5-2 MHz transducer. Multiple elastography samples are obtained. FINDINGS: PANCREAS: Body of the pancreas is normal. The head and tail are not well visualized due to bowel gas. ABDOMINAL AORTA: The proximal, middle, and distal aortic segments are normal in caliber. INFERIOR VENA CAVA: Visualized portions are normal. LIVER: Liver echotexture The liver demonstrates normal size, contour. No focal lesion or intrahepatic biliary duct dilatation. The right lobe measures 16.3 cm in length. The left lobe measures 10.3 cm in length. Portal flow is normal/ Shear wave liver elastography median stiffness is 1.5 m/s (reference: normal median stiffness is 1.3 m/s or less). IQR/median stiffness to assess sampling precision is 0.28 (reference: good quality data set is IQR/median stiffness of 0.15 or less). GALLBLADDER: Normal. The gallbladder is physiologically distended without evidence of stones, sludge, polyps, wall thickening or pericholecystic fluid. COMMON BILE DUCT: Normal in caliber measuring 0.2 cm in diameter. RIGHT KIDNEY: Normal. No hydronephrosis. No renal calculi or focal parenchymal lesions. The kidney measures 11 point cm in maximum dimension. LEFT KIDNEY: Normal. No hydronephrosis. No renal calculi or focal parenchymal lesions. The kidney measures 11.8 cm in maximum dimension. SPLEEN: Upper normal in size. The spleen measures 12.8 cm in maximum dimension. FREE FLUID: None. US/US abdomen comp w elastography IMPRESSION: 1. Impression: Echogenic liver. Limited visualization of the pancreas. Upper normal-size spleen. 2. Liver elastography: Limited due to sampling. REFERENCE: Society of Radiologists in Ultrasound Liver Stiffness Thresholds (2020): LIVER STIFFNESS THRESHOLDS: *Liver Stiffness equal or less than 1.3 m/s: High probability of being normal. *Liver Stiffness less than 1.7 m/s: In the absence of other known clinical signs, rules out compensated advanced chronic liver disease. *Liver Stiffness 1.7-2.1 m/s: Suggestive of compensated advanced chronic liver disease but need further test for confirmation. *Liver Stiffness over 2.1 m/s: Rules in compensated advanced chronic liver disease. *Liver Stiffness over 2.4 m/s: Suggestive of clinically significant portal hypertension. QUALITY OF DATA SET: *IQR/Median value equal or less than 0.15 implies a quality data set. *IQR/Median value over 0.15 implies a poor quality data set. SIGNIFICANT CHANGE FROM PRIOR EXAM: Significant change if liver stiffness measurement is 10% or greater from prior exam. OTHER CONSIDERATIONS: The stage of liver fibrosis may be overestimated in the setting of acute hepatitis, liver inflammation, elevated liver function tests, hepatic vascular congestion, obstructive cholestasis, non-fasting state, and infiltrative diseases such as amyloidosis and lymphoma. In some patients with NAFLD, the liver stiffness thresholds for compensated advanced chronic liver disease may be lower. In causes other than viral hepatitis and NAFLD, liver stiffness thresholds are not well established.
== END 2022-09-22 09:29 | disposition home or self-care (01) ==
LOC: HO.US 09:28
PROVIDERS: Visit Provider Physician Assistant Surgical
DX: E66.01 Morbid (severe) obesity due to excess calories (principal)
CPT/HCPCS: 74246; 76705; 76981

== ENCOUNTER 2022-10-29 12:05 | Outpatient (REF) | payer OTHER, SELFPAY ==
[2022-10-29 12:49] LABS: COVID-19 Test Negative (Negative); IDNOW Serial# BCCEAD1C
== END 2022-10-29 12:06 | disposition home or self-care (01) ==
LOC: HO.LAB 12:05
PROVIDERS: Visit Provider Internal Medicine
DX: Z20.822 Contact with and (suspected) exposure to COVID-19 (principal)
CPT/HCPCS: 87635

== ENCOUNTER 2022-12-05 01:48 | Outpatient (REF) | payer OTHER, SELFPAY ==
[2022-12-05 02:17] LABS: COVID-19 Test Negative (Negative); IDNOW Serial# BCCEAD1C
== END 2022-12-05 01:49 | disposition home or self-care (01) ==
LOC: HO.LAB 01:48
PROVIDERS: Visit Provider Internal Medicine
DX: Z20.822 Contact with and (suspected) exposure to COVID-19 (principal)
CPT/HCPCS: 87635

== ENCOUNTER 2022-12-20 06:59 | Emergency (ER) | payer OTHER, SELFPAY ==
--- NOTE | ~2022-12-20 | US_ITS ---
EXAMINATION: US PELVIS CLINICAL INFORMATION: Pain with IUD COMPARISON: None TECHNIQUE: Ultrasound of the pelvis is performed using both transabdominal and transvaginal transducers along with Doppler. Transvaginal imaging is performed due to inadequate visualization transabdominally. FINDINGS: Uterus: The uterus is anteverted and measures 9.8 x 4.0 x 4.9 cm. The double wall endometrial thickness is 0.9 mm. The uterus is smooth in contour and has normal myometrial echogenicity. No visible fibroid. An IUD remains in place in the uterus positioned low, extending into the cervix. Adnexa: Both ovaries are visualized. There is normal color flow to the adnexa. There is no ovarian torsion. There is no pelvic ascites or fluid collection. Right ovary measures 3.1 x 1.7 x 1.5 cm. Left ovary measures 3.0 x 2.2 x 3.0 cm. US/US pelvic and transvaginal IMPRESSION: An IUD is present in the uterus, positioned low extending into the cervix. Similar appearances were present at the time of the 07/09/2022 study.
[2022-12-20 07:12] VITALS: BP 142/75; PULSE 84; RESP 18; TEMP 36.5; O2SAT 96; BMI 47.0
[2022-12-20 07:24] VITALS: BP 126/76; PULSE 80; RESP 17; TEMP 36.6; O2SAT 98
--- NOTE | 2022-12-20 07:28 | PC.NURSE ---
patient a/ox4 . saltyrla . heart rate regular at 84 beats per minute . breathing even and unlabored . lungs clear throughout . heart rate regular at 84 beats per minute . skin pink warm and dry . abdomen soft. positive bowel sounds in all quadrants. rebound tenderness noted in left flank area that radiates down her groined . patient reports 8 out of 10 pain .patient reports this started 4 days ago . awaiting provider orders . patient aware of plan of care .
--- NOTE | 2022-12-20 07:30 | ED.ABDPAIN ---
HPI - Abdominal Pain General Chief Complaint: Abdominal Pain Stated Complaint: Pelvic pain Time Seen by Provider: 12/20/22 07:12 Source: patient Mode of arrival: ambulatory Limitations: no limitations History of Present Illness HPI narrative: Patient with a period 1.5 weeks ago. Now over the last 4 days she has had constant sharp pain. No history of ovarian cysts, denies dysuria or hematuria, patient has an IUD so denies , she has a new sexual partner in the past 3 weeks, denies new or changed vaginal discharge. MD elicited complaint: other (pelvic pain) Onset (ago): day(s) Pain Consistency: constant Severity: mild Quality: sharp Exacerbating factors: movement Relieving factors: nothing Associated symptoms: denies other symptoms Related Data Home Medications Medication Instructions Recorded Confirmed lamotrigine 100 mg tablet 100 mg PO DAILY 11/09/20 10/31/22 lamotrigine 25 mg tablet 25 mg PO DAILY 11/09/20 10/31/22 aripiprazole 5 mg tablet 10 mg PO DAILY 08/07/22 10/31/22 Previous Rx's Medication Instructions Recorded omeprazole 40 mg capsule,delayed 40 mg PO DAILY #90 caps 08/08/22 release cholecalciferol (vitamin D3) 125 125 mcg PO DAILY #30 caps 08/23/22 mcg (5,000 unit) capsule cyanocobalamin (vitamin B-12) 500 500 mcg PO DAILY #30 tabs 08/23/22 mcg tablet doxycycline hyclate 100 mg capsule 100 mg PO BID #14 caps 12/20/22 Allergies Allergy/AdvReac Type Severity Reaction Status Date / Time No Known Drug Allergies Allergy Unknown None Verified 10/31/22 11:25 [facility] Past Medical History Medical History Asthma Bipolar 2 disorder Herpes simplex type 1 infection Herpes simplex type 2 infection Morbid obesity with body mass index (BMI) of 40.0 to 44.9 in adult Surgical History H/O wisdom tooth extraction Hx of section Family History Family History Mother No problems noted. Father No problems noted. 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/hazards: No Sexual orientation: Straight/Heterosexual Gender identity: Female Physical Exam ED Vital Signs: Vital Signs - 24 hr 12/20/22 07:12 12/20/22 07:24 Temperature 97.7 F 97.8 F Pulse Rate 84 80 Respiratory Rate 18 17 Blood Pressure 142/75 H 126/76 Pulse Oximetry 96 98 Oxygen Delivery Method Room Air Room Air BMI result Body Mass Index 47.0 Const Other: morbidly obese female Orientation/consciousness: oriented to person and patient oriented x3 Limitations: no limitations HENMT Head: Yes normal to inspection Ears: external ears normal General nose exam: Normal external nose present Mouth: Normal oral and palatal mucosa present and oropharynx normal Throat: Yes posterior oropharynx normal Eyes General: appearance normal, both eyes and all related structures Neck Neck: Yes normal visual inspection Chest Chest palpation & inspection: normal inspection of the chest Resp Auscultation: clear to auscultation bilaterally Cardio Jugular venous distension: no JVD Rate: regular rate Rhythm: regular rhythm Heart sounds: S1 normal heart sound present and S2 normal heart sound present GI Inspection: Yes normal to inspection Palpation (GI): Soft to palpation, nontender and No hepatosplenomegaly present Auscultation: normal bowel sounds Other: normal vagina, small yellow green discharge from her cervical os, severe CMT on digital exam Skin General skin exam: no rashes or lesions noted Neuro General: oriented to person and patient oriented x3 Cranial nerves: Yes CN's II-XII intact bilaterally Motor exam (neuro): 5/5 motor strength present throughout Extrem General: Yes normal to inspection Psych Appearance: grossly normal Course Reevaluation(s) Reevaluation #1: with green yellow discharge and CMT will treat for STD Time: 09:55 Medical Decision Making Differential Diagnosis , ectopic , UTI, STD, Displaced IUD. Lab Data Labs: Lab Results 12/20/22 12/20/22 Range/Units 07:44 08:20 Urine Color Yellow Urine Appearance Clear Urine pH 5.5 (5.0-9.0) Ur Specific [place] 1.025 (1.005-1.025) Urine Protein Negative (Neg-Trace) mg/dL Urine Glucose (UA) Negative (Negative) mg/dL Urine Ketones Negative (Negative) mg/dL Urine Blood Negative (Negative) Urine Nitrite Negative (Negative) Ur Leukocyte Esterase Negative (Negative) Urine Test NEGATIVE (NEGATIVE) Independent Interpretation I performed an independent interpretation of an: Ultrasound (IUD in good place no ovarian cyst or abscess seen) Discharge Plan Discharge Clinical Impression: STD (female) Patient Disposition: Home, Self-Care Instructions: Cervicitis (ED), Chlamydia (ED), Gonorrhea (ED), Vaginal Discharge (ED) Prescriptions: New doxycycline hyclate 100 mg capsule 100 mg PO BID Qty: 14 0RF No Action omeprazole 40 mg capsule,delayed release(DR/EC) 40 mg PO DAILY Qty: 90 0RF cholecalciferol (vitamin D3) 125 mcg (5,000 unit) capsule 125 mcg PO DAILY Qty: 30 3RF cyanocobalamin (vitamin B-12) 500 mcg tablet 500 mcg PO DAILY Qty: 30 2RF lamotrigine 100 mg tablet 100 mg PO DAILY lamotrigine 25 mg tablet 25 mg PO DAILY aripiprazole 5 mg tablet 10 mg PO DAILY Referrals: Gene Armas MD [Physician] - 10 days
[2022-12-20 07:55] LABS: Appearance Urine Clear; Color Urine Yellow; Glucose Urine UA Negative (Negative); Leukocyte Esterase Urine Negative (Negative); Nitrite Urine Negative (Negative); PH 5.5 (5.0-9.0); Specific Gravity - Urine 1.025 (1.005-1.025); Urine Blood Negative (Negative); Urine Ketones Negative (Negative); Urine Protein Negative (Neg-Trace)
[2022-12-20 08:30] LABS: UPreg QC Valid YES; Urine Pregnancy NEGATIVE (NEGATIVE)
--- NOTE | 2022-12-20 08:47 | PC.NURSE ---
Patient to ultrasound for imaging . patient aware of plan of care .
[2022-12-20 10:07] VITALS: BP 138/87; PULSE 79; RESP 16; TEMP 36.7; O2SAT 100
[2022-12-20] MEDS: cefTRIAXone sodium 500 MG VIAL IM (10:18)
--- NOTE | 2022-12-20 10:23 | PC.NURSE ---
Patient a/ox4 . Went over discharge instructions as ordered by provider . Patient to follow up with primary care and [facility] . patient to return if symptoms worsen . no questions at this time .
[2022-12-20 10:44] LABS: CT PCR NOT DETECTED (Not Detect.); NG PCR NOT DETECTED (Not Detect.)
== END 2022-12-20 10:26 | disposition home or self-care (01) ==
PROVIDERS: Emergency Provider Emergency Medicine
DX: R10.2 Pelvic and perineal pain (principal); Z20.2 Contact with and (suspected) exposure to infections with a predominantly sexual mode of transmission; E66.9 Obesity, unspecified; Z68.42 Body mass index [BMI] 45.0-49.9, adult; Z79.899 Other long term (current) drug therapy
CPT/HCPCS: 0353U; 76830; 76856; 81003; 81025; 96372; 99284; J0696

== ENCOUNTER 2023-08-24 07:04 | Emergency (ER) | payer OTHER, SELFPAY ==
[2023-08-24 07:21] VITALS: BP 138/79; PULSE 93; RESP 16; TEMP 36.8; O2SAT 97; BMI 46.7
--- NOTE | 2023-08-24 07:37 | ED_ITS ---
HPI - General Adult General Chief complaint: Skin/Abscess/Foreign Body Stated complaint: Red bump on R hip/ L thigh, muscle aches Time Seen by Provider: 08/24/23 07:10 History of Present Illness HPI narrative: Patient is a 23-year-old female presents today with generalized malaise weakness. Patient does not think she is . She has an IUD in place. Denies any vaginal bleeding. Positive going outside from time to time. Patient complaining of generalized malaise. Feels very tired. Need to sleep extra hours. Patient's larger in size. Also noted 2 lesions 1 near the right hip and 1 near the left inner thigh that seems to be red, raised. Patient is from home. 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 No new medications. Related Data Home Medications Medication Instructions Recorded Confirmed lamotrigine 100 mg tablet 100 mg PO DAILY 11/09/20 10/31/22 lamotrigine 25 mg tablet 25 mg PO DAILY 11/09/20 10/31/22 aripiprazole 5 mg tablet 10 mg PO DAILY 08/07/22 10/31/22 Previous Rx's Medication Instructions Recorded omeprazole 40 mg capsule,delayed 40 mg PO DAILY #90 caps 08/08/22 release cholecalciferol (vitamin D3) 125 125 mcg PO DAILY #30 caps 08/23/22 mcg (5,000 unit) capsule cyanocobalamin (vitamin B-12) 500 500 mcg PO DAILY #30 tabs 08/23/22 mcg tablet doxycycline hyclate 100 mg capsule 100 mg PO BID #14 caps 12/20/22 doxycycline hyclate 100 mg capsule 100 mg PO BID cough 14 days #28 08/24/23 caps Allergies Allergy/AdvReac Type Severity Reaction Status Date / Time No Known Drug Allergies Allergy Unknown None Verified 10/31/22 11:25 Review of Systems 2 Review of Systems: Fever no chills. Positive generalized malaise. Positive red raised lesion over the right hip and over the left inner thigh Yes all other systems are reviewed and are negative [facility] Past Medical History Attestation statement: The following information was validated with the patient. Medical History Bipolar 2 disorder Herpes simplex type 2 infection Herpes simplex type 1 infection Morbid obesity with body mass index (BMI) of 40.0 to 44.9 in adult Asthma Surgical History Hx of section H/O wisdom tooth extraction Family History Family History Mother No problems noted. Father No problems noted. Maternal Grandmother Diabetes mellitus Maternal Grandfather Esophageal cancer Paternal Grandmother Lung cancer Paternal Grandfather Colon cancer Social History Social History Household Members: Family Housing: House Are you a primary caretaker to a significant other at home: No Do you presently have visiting nurse or other home services: No Alcohol intake: former Patient Tobacco Use Status: Never used Tobacco Smoked in Last 30 Days: No Use of substances other than those prescribed or required for medical reasons: No Advance Directives: No Advance Directives Information Provided: No service: No Current occupational status: employed 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 Oriented X3. No acute distress. Eyes: Pupils equal, round and reactive to light. ENT: Pharynx normal. Neck: Normal inspection. Neck supple. No lymph nodes noted. No crepitus CVS: Normal heart rate and rhythm. Pulses normal. Normal S1 and S2 Respiratory: No respiratory distress. Breath sounds normal. No Wheezing. No rales Abdomen: Soft and nontender. No rigidity. No distention. good BS x4 Skin: Skin warm and dry. Positive red raised lesion over the right hip area blanches. No gross fluctuance noted. Approximately 3 cm x 3 cm in size. A 2nd lesion or notice over the left inner thigh also about 3 cm x 3 cm no fluctuance again. Red raised blanches. Extremities: No lower extremity edema. Neurovascular intact to all extremities. No Lacerations. No Rash Neuro: Oriented X 3. No motor deficit. No sensory deficit. Moving all extermities. No slurred speech Medical Decision Making Medical Decision Making MDM Narrative: Well-appearing no acute distress 2 skin lesion noted 1 over the hip 1 over the inner thigh question skin infection versus Lyme. Lyme titers were sent. Explained to the patient limit of the Lyme test. Will start treating patient with doxycycline anyway. test will be checked. Will check patient's thyroid for hypo or hyperthyroid causing patient's generalized malaise. Currently in stable condition. Panel for other tick-borne disease was sent Baseline electrolyte was sent. test was negative. No related issues. Patient's UA was negative for infection. White count is normal. Electrolytes unremarkable. Will start patient on doxycycline. Will meche out the area of redness. Follow- up on an outpatient basis warm soaks. In stable condition. Will treat patient for Lyme likely in 100 mg p.o. twice a day for 14 days. Differential Diagnosis Differential Diagnoses: The differential diagnosis associated with the presentation includes Lyme, hypothyroid, depression, cellulitis, tick-borne illness Admission/Observation Consideration of admission/observation: Escalation of care including admission/observation considered Well-appearing no need for admission Lab Data MDM Lab Attestation statement: I reviewed the patient's lab results. 08/24/23 08:04 08/24/23 08:04 Labs: Lab Results 08/24/23 Range/Units 08:04 WBC 9.6 (4.8-10.8) X10*3/uL RBC 4.29 (4.20-5.50) X10*6/uL Hgb 12.2 (12.0-16.0) g/dl Hct 36.4 L (37.0-47.0) % MCV 84.8 (80.0-98.0) fL MCH 28.4 (27.0-33.0) pg MCHC 33.5 (31.0-35.0) g/dl RDW 13.6 (11.0-16.0) % Plt Count 247 (160-400) X10*3/uL MPV 8.9 L (9.4-12.3) fL Immature Gran % (Auto) 0.3 (0.0-0.4) % Neut % (Auto) 68.6 (45-73) % Lymph % (Auto) 19.9 L (20-40) % [place] % (Auto) 9.4 (2-11) % Eos % (Auto) 1.5 (0-4) % Baso % (Auto) 0.3 (0-2) % Lymph # (Auto) 1.9 (1.2-4.9) X10*3/uL [place] # (Auto) 0.9 (0.1-1.2) X10*3/uL Eos # (Auto) 0.1 (0.0-0.4) X10*3/uL Baso # (Auto) 0.0 (0.0-0.2) X10*3/uL Abs Immat Gran (auto) 0.03 (0.00-0.03) X10*3/uL Absolute Neuts (auto) 6.6 (2.0-8.3) x10*3/uL Absolute Nucleated RBC 0.000 (0.0-0.012) X10*3/uL Nucleated RBC % (auto) 0.0 (0.0-0.2) /100WBC Sodium 139 (135-145) mmol/L Potassium 4.8 (3.3-5.1) mmol/L Chloride 107 (96-108) mmol/L Carbon Dioxide 22 (22-29) mmol/L Anion Gap 15 (12-20) BUN 14 (9-16) mg/dL Creatinine 0.72 (0.5-1.4) mg/dL Estim Creat Clear Calc 160.6 Estimated GFR > 60 Random Glucose 96 (60-115) mg/dL Calcium 9.6 D (8.4-10.2) mg/dL Total Bilirubin 0.3 (0.0-1.0) mg/dL Direct Bilirubin 0.1 (0.0-0.5) mg/dL AST 23 (5-31) U/L ALT 30 (0-31) U/L Alkaline Phosphatase 97 (39-117) U/L Total Protein 7.1 (6.5-8.0) g/dL Albumin 4.0 (3.5-5.0) g/dL Urine Color Yellow Urine Appearance Clear Urine pH 5.5 (5.0-9.0) Ur Specific [place] 1.015 (1.005-1.025) Urine Protein Negative (Neg-Trace) mg/dL Urine Glucose (UA) Negative (Negative) mg/dL Urine Ketones Negative (Negative) mg/dL Urine Blood Negative (Negative) Urine Nitrite Negative (Negative) Ur Leukocyte Esterase Small (1+) H (Negative) Urine RBC 0-2 (0-2) /HPF Urine WBC 6-10 H (0-5) /HPF Ur Squamous Epith Cells 6-10 (0-2) /HPF Urine Bacteria 1+ (None Seen) Hyaline Casts 0-2 (0-2) /LPF Urine Test NEGATIVE (NEGATIVE) External Record Review External record reviewed: Office record Patient's previous office record including bariatric record and OB record was reviewed. Discharge Plan Discharge Clinical Impression: Cellulitis Patient Disposition: Home, Self-Care Instructions: Cellulitis (ED) Prescriptions: New doxycycline hyclate 100 mg capsule 100 mg PO BID 14 Days Qty: 28 0RF No Action omeprazole 40 mg capsule,delayed release(DR/EC) 40 mg PO DAILY Qty: 90 0RF cholecalciferol (vitamin D3) 125 mcg (5,000 unit) capsule 125 mcg PO DAILY Qty: 30 3RF cyanocobalamin (vitamin B-12) 500 mcg tablet 500 mcg PO DAILY Qty: 30 2RF doxycycline hyclate 100 mg capsule 100 mg PO BID Qty: 14 0RF lamotrigine 100 mg tablet 100 mg PO DAILY lamotrigine 25 mg tablet 25 mg PO DAILY aripiprazole 5 mg tablet 10 mg PO DAILY Referrals: Physician,None [Primary Care Provider] - 08/28/23
[2023-08-24 08:10] LABS: MANUAL DIFF FLAG NO
[2023-08-24 08:11] LABS: Basophils Percent Auto 0.3 % (0-2); Eosinophils Absolute Auto 0.1 X10*3/uL (0.0-0.4); Eosinophils Percent Auto 1.5 % (0-4); Hematocrit 36.4 % (37.0-47.0); Hemoglobin 12.2 g/dl (12.0-16.0); Imm Gran Abs Auto 0.03 X10*3/uL (0.00-0.03); Imm Gran Pct Auto 0.3 % (0.0-0.4); Lymphocytes Absolute Auto 1.9 X10*3/uL (1.2-4.9); Lymphocytes Percent Auto 19.9 % (20-40); Mean Corpuscular HGB Conc 33.5 g/dl (31.0-35.0); Mean Corpuscular Hemoglobin 28.4 pg (27.0-33.0); Mean Corpuscular Volume 84.8 fL (80.0-98.0); Mean Platelet Volume 8.9 fL (9.4-12.3); Monocytes Absolute Auto 0.9 X10*3/uL (0.1-1.2); Monocytes Percent Auto 9.4 % (2-11); Neutrophils Absolute Auto 6.6 x10*3/uL (2.0-8.3); Neutrophils Percent Auto 68.6 % (45-73); Platelet Count 247 X10*3/uL (160-400); Red Blood Count 4.29 X10*6/uL (4.20-5.50); Red Cell Distribution Width 13.6 % (11.0-16.0); White Blood Count 9.6 X10*3/uL (4.8-10.8)
[2023-08-24 08:13] LABS: Appearance Urine Clear; Color Urine Yellow; Glucose Urine UA Negative (Negative); Leukocyte Esterase Urine Small (1+) (Negative); Nitrite Urine Negative (Negative); PH 5.5 (5.0-9.0); Specific Gravity - Urine 1.015 (1.005-1.025); UMIC TRIGGER UACC YES; Urine Blood Negative (Negative); Urine Ketones Negative (Negative); Urine Protein Negative (Neg-Trace)
[2023-08-24 08:15] LABS: UPreg QC Valid YES; Urine Pregnancy NEGATIVE (NEGATIVE)
[2023-08-24 08:18] LABS: Bacteria Urine 1+ (None Seen); Hyaline Casts Urine 0-2 /LPF (0-2); RBC Urine 0-2 /HPF (0-2); UACC Culture Trigger YES
[2023-08-24 08:31] LABS: Alanine Aminotransferase 30 U/L (0-31); Alkaline Phosphatase 97 U/L (39-117); Anion Gap 15 (12-20); Aspartate Amino Transferase 23 U/L (5-31); Bilirubin Direct 0.1 mg/dL (0.0-0.5); Bilirubin Total 0.3 mg/dL (0.0-1.0); Blood Urea Nitrogen 14 mg/dL (9-16); Calcium 9.6 mg/dL (8.4-10.2); Carbon Dioxide 22 mmol/L (22-29); Chloride 107 mmol/L (96-108); Creatinine Clr Calc Pharmacy 160.6; Estimated Glomerular Filt Rate > 60; Glucose Random 96 mg/dL (60-115); Potassium 4.8 mmol/L (3.3-5.1); Sodium 139 mmol/L (135-145); Total Protein 7.1 g/dL (6.5-8.0)
[2023-08-27 21:58] LABS: Lyme Abs Screen <0.90 index
[2023-08-30 13:38] LABS: Babesia IgG <1:64 titer (<1:64); Babesia IgM <1:20 titer (<1:20)
[2023-08-30 15:49] LABS: A. Phagocytophilum Ab IgG <1:64 (<1:64); A. Phagocytophilum Ab IgM <1:20 (<1:20); E. Chaffeensis Ab IgG <1:64 (<1:64); E. Chaffeensis Ab IgM <1:20 (<1:20)
== END 2023-08-24 08:59 | disposition home or self-care (01) ==
PROVIDERS: Emergency Provider Emergency Medicine Emergency Medical Services
DX: L03.115 Cellulitis of right lower limb (principal); E66.9 Obesity, unspecified; Z68.42 Body mass index [BMI] 45.0-49.9, adult
CPT/HCPCS: 36415; 80048; 80076; 81001; 81025; 84443; 85025; 86617; 86618; 86666; 86753; 87086; 99283; 99284

== ENCOUNTER 2024-09-13 23:31 | Emergency (ER) | payer OTHER, SELFPAY ==
--- NOTE | ~2024-09-13 | XR_ITS ---
EXAMINATION: XR LUMBOSACRAL SPINE CLINICAL INFORMATION: Pain. COMPARISON: None available. TECHNIQUE: Three views of the lumbosacral spine. FINDINGS: The vertebral bodies and posterior elements are normal. The disc spaces are preserved and the vertebral alignment is normal. The paraspinal soft tissues are normal. XR/XR lumbar spine 2-3V IMPRESSION: Unremarkable examination. Electronically signed by: Grey Art MD 09/14/2024 02:18 AM EDT
[2024-09-13 23:36] VITALS: BP 126/70; PULSE 79; RESP 18; TEMP 36.6; O2SAT 100; BMI 34.3
--- NOTE | 2024-09-14 00:19 | ED.BACK ---
HPI - Back Pain/Injury General Chief Complaint: Back Pain/Injury Stated Complaint: back pain from prev inj Time Seen by Provider: 09/14/24 00:19 Source: patient Mode of arrival: ambulatory Limitations: no limitations History of Present Illness ED Provider: jaz TAYLOR Narrative: Patient's history of low back pain for last 3 years off and on usually well controlled for last few weeks been having more pain no known acute injury at this time patient mostly pain is in left sciatic area and radiating to the left leg no motor weakness no bladder or bowel involvement no MRI done in the past Related Data Home Medications ?Medication ?Instructions ?Recorded ?Confirmed lamotrigine 100 mg tablet 100 mg PO DAILY 11/09/20 10/31/22 lamotrigine 25 mg tablet 25 mg PO DAILY 11/09/20 10/31/22 aripiprazole 5 mg tablet 10 mg PO DAILY 08/07/22 10/31/22 Previous Rx's ?Medication ?Instructions ?Recorded omeprazole 40 mg capsule,delayed 40 mg PO DAILY #90 caps 08/08/22 release cholecalciferol (vitamin D3) 125 125 mcg PO DAILY #30 caps 08/23/22 mcg (5,000 unit) capsule cyanocobalamin (vitamin B-12) 500 500 mcg PO DAILY #30 tabs 08/23/22 mcg tablet doxycycline hyclate 100 mg capsule 100 mg PO BID #14 caps 12/20/22 doxycycline hyclate 100 mg capsule 100 mg PO BID cough 14 days #28 08/24/23 caps cyclobenzaprine 10 mg tablet 10 mg PO Q8H #20 tabs 09/14/24 ibuprofen 600 mg tablet 600 mg PO Q6H PRN fever or pain 09/14/24 #30 tabs tramadol 50 mg tablet 50 mg PO Q6H PRN pain #20 tabs 09/14/24 Allergies Allergy/AdvReac Type Severity Reaction Status Date / Time No Known Drug Allergies Allergy Unknown None Verified 09/13/24 23:39 Review of Systems Review of Systems: Yes all other systems are reviewed and are negative PMFSH Past Medical History Medical History Bipolar 2 disorder Herpes simplex type 2 infection Herpes simplex type 1 infection Morbid obesity with body mass index (BMI) of 40.0 to 44.9 in adult Asthma Surgical History Hx of section H/O wisdom tooth extraction Family History Family History Mother No problems noted. Father No problems noted. 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 Oriented X3. No acute distress. ENT: Pharynx normal. Oral Mucosa moist Neck: Normal inspection. Neck supple. CVS: Normal heart rate and rhythm. Pulses normal. Respiratory: No respiratory distress. Equal air entry bilateral, no wheezing/rales/rhonchi Abdomen: Soft and nontender. Bowel sounds are present, no mass palpable, no CVA tenderness Back: Diffuse left paraspinal tenderness sciatic notch tenderness SLR positive neurovascular intact Skin: Skin warm and dry. Normal skin color. Normal skin turgor. Extremities: No lower extremity edema. No calf tenderness Neuro: Oriented X 3. No motor deficit. No sensory deficit.No cerebellar signs , cranial nerves II-XII intact Medications Administered Discontinued Medications Generic Name Dose Route Start Last Admin Trade Name Freq PRN Reason Stop Dose Admin Cyclobenzaprine HCl 10 mg 09/14/24 00:31 09/14/24 00:43 Cyclobenzaprine Hcl 10 Mg Tablet PO 09/14/24 00:32 10 mg ONCE ONE Administration Ketorolac Tromethamine 60 mg 09/14/24 00:31 09/14/24 00:42 Ketorolac Tromethamine 60 Mg/2 Ml Vial IM 09/14/24 00:32 60 mg ONCE ONE Administration Medical Decision Making Independent Interpretation I performed an independent interpretation of an: Plain X-Ray Radiology Impression Discussion of test interpretation with radiology: I have reviewed the radiologist's reading. Radiologist Impression: [address] [id number] XRay Report Signed Patient: Rashida Ayala MR#: [id number] : 2000 Acct:[id number] Age/Sex: 24 / F ADM Date: 09/14/24 Loc: HO.ED Attending Dr: Ordering Physician: Hamzah Houston MD Date of Service: 09/14/24 Procedure(s): XR lumbar spine 2-3V Accession Number(s): [id number] cc: Physician,Unknown ; Hamzah Houston MD~ EXAMINATION: XR LUMBOSACRAL SPINE CLINICAL INFORMATION: Pain. COMPARISON: None available. TECHNIQUE: Three views of the lumbosacral spine. FINDINGS: The vertebral bodies and posterior elements are normal. The disc spaces are preserved and the vertebral alignment is normal. The paraspinal soft tissues are normal. XR/XR lumbar spine 2-3V IMPRESSION: Unremarkable examination. Electronically signed by: Grey Art MD 09/14/2024 02:18 AM EDT Discharge Plan Discharge Clinical Impression: Acute left-sided back pain with sciatica Patient Disposition: Home, Self-Care Instructions: Sciatica (ED), Piriformis Syndrome (ED), Lower Back Exercises (ED) Additional Instructions: Do exercises as advised Possible you have piriformis syndrome Take pain medication muscle relaxant as prescribed Follow up with your PCP Prescriptions: New cyclobenzaprine 10 mg tablet 10 mg PO Q8H Qty: 20 0RF tramadol 50 mg tablet 50 mg PO Q6H PRN (Reason: pain) Qty: 20 0RF ibuprofen 600 mg tablet 600 mg PO Q6H PRN (Reason: fever or pain) Qty: 30 0RF No Action omeprazole 40 mg capsule,delayed release(DR/EC) 40 mg PO DAILY Qty: 90 0RF cholecalciferol (vitamin D3) 125 mcg (5,000 unit) capsule 125 mcg PO DAILY Qty: 30 3RF cyanocobalamin (vitamin B-12) 500 mcg tablet 500 mcg PO DAILY Qty: 30 2RF doxycycline hyclate 100 mg capsule 100 mg PO BID Qty: 14 0RF doxycycline hyclate 100 mg capsule 100 mg PO BID 14 Days Qty: 28 0RF lamotrigine 100 mg tablet 100 mg PO DAILY lamotrigine 25 mg tablet 25 mg PO DAILY aripiprazole 5 mg tablet 10 mg PO DAILY Interventions: ED Discharge Assessment Last Done: 09/14/24 01:41 Discharge Date/Time: 09/14/24 01:42 Print Language: Romansh
[2024-09-14] MEDS: Ketorolac Tromethamine 60 MG/2 ML VIAL IM (00:42)
[2024-09-14] MEDS: Cyclobenzaprine HCl 10 MG TABLET PO (00:43)
[2024-09-14 01:41] VITALS: BP 127/72; PULSE 70; RESP 16; TEMP 36.7; O2SAT 98
== END 2024-09-14 01:42 | disposition home or self-care (01) ==
PROVIDERS: Emergency Provider Internal Medicine
DX: M54.42 Lumbago with sciatica, left side (principal); Z79.899 Other long term (current) drug therapy
CPT/HCPCS: 72100; 96372; 99283; 99284; J1885

== ENCOUNTER 2024-09-19 11:36 | Outpatient (AMB) | payer OTHER, SELFPAY ==
--- NOTE | 2024-09-19 11:39 | A.OFFPC_ITS ---
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 Intake Note: new patient to establish care Allergies No Known Drug Allergies Allergy (Unknown, Verified 09/19/24 11:49) None Medication List - Last Reconciled 09/19/24 by Ashley Neville, [employer]- semaglutide (weight loss) (Wegovy) 2.4 mg subcut QWEEK Tobacco use date assessed: 09/19/24 Dental Screening Dental Screen Date: 09/19/24 Did you have a dental visit in the last 12 months?: Yes Did you have a dental problem in the last 6 months where you did not have access to dental care?: No Was dental information given to patient?: Patient has dentist HPI HPI Comments History of Present Illness Details 24 y/o F with HSV, obesity, bipolar 2, e czema, etoh dependence in remission 2021, post depression, chronic constipation s/p c section, wisdom tooth extraction School to be [employer] will be done in 3 months 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 Pap ? 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 Had lumbar spine xray, reviewed. WNL. Pain in transverse low back, ariza. Tingling on bilat anterior thighs, stops mid thigh. Was given flexeril and tramadol. Did not take tramadol. The flexeril helped some. Ibuprofen helps some, too. Was on Wegovy for 20 months, insurance stopped covering. This was RXd through weight clinic. She now pays villarreal for this. Does not think she has bipolar. Was on psych meds in the past. At this time, Attention is not good. Makes school and work hard. Wonders about Wellbutrin. Bipolar 2 was dx by Adina Gilbert at [facility]. + depression. Called to get back in not taking new patients. Etoh dep in remission since 2021. Active w/ AA Was supposed to have EGD and colon but never scheduled this. Lifetime gastro issues. Periods of time really constipated, can last for 1 week, then periods of diarrhea. Had issues w/ chronic vomiting. This has not happened in quite some time. She cont w/ constipation. Is on bowel regimen, however it persists. Drinking h20, eating fiber. Does not feel needs to f/u at this time. Manageable at this point. Optho wears glasses UTD on eye exam Skin has eczema on hands/wrists, managed w/ topical hydrocort Plan MRI L spine [facility] referral to help est a diagnosis and plan of care for medications going forward. Routine screening labs RTO 8 weeks to fu on MRI/Consult/Labs, sooner PRN Labs from today show normal electrolytes, normal renal function, hemoglobin A1c 4.7%, normal LFTs, normal lipids, normal TSH, normal urine microalbumin creatinine ratio, B12 and folate normal This note is constructed using voice recognition software. While every effort has been made to ensure accuracy in cash register balancer, still errors may have been included Sometimes, these errors may affect the content or meaning of the given sentence . An additional 22 was spent addressing the problem(s) noted at [facility] visit. This includes time spent before the visit reviewing the chart, time spent during the visit, and time spent after the visit on documentation [facility] Medical History (Updated 09/19/24 @ 17:36 by Ashley Neville, [facility]) Bipolar 2 disorder Back injury Herpes simplex type 2 infection Herpes simplex type 1 infection Morbid obesity with body mass index (BMI) of 40.0 to 44.9 in adult Asthma Surgical History Hx of section H/O wisdom tooth extraction Family History (Updated 09/19/24 @ 11:49 by Vicente Yao MA) Mother No problems noted. Father Mental health disorder Substance abuse High cholesterol Alcoholism Maternal Grandmother Diabetes mellitus Maternal Grandfather Esophageal cancer Paternal Grandmother Lung cancer Alcoholism Paternal Grandfather Colon cancer Social History (Updated 09/19/24 @ 11:47 by Vicente Yao MA) Household Members: Family Housing: House Are you a primary patient care coordinator to a significant other at home: No Do you presently have visiting nurse or other home services: No Alcohol intake: former Patient Tobacco Use Status: Never used Tobacco e-Cigarette/Vaping Use: Never Used Second Hand Smoke Exposure: No service: No Current occupational status: employed 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 1. Little interest or pleasure in doing things: several days 2. Feeling down, depressed, or hopeless: not at all 3. Trouble falling or staying asleep, or sleeping too much: not at all 4. Feeling tired or having little energy: several days 5. Poor appetite or overeating: not at all 6. Feeling bad about yourself - or that you are a failure or have let yourself or your family down: several days 7. Trouble concentrating on things, such as reading the newspaper or watching television: more than half the days 8. Moving or speaking so slowly that other people could have noticed. Or the opposite - being so fidgety or restless that you have been moving around a lot more than usual: not at all 9. Thoughts that you would be better off or of hurting yourself in some way: not at all Total score: 5 Depression Screening Interpretation: Negative Depression Screening Done: Yes 10996 - PHQ-9 Billing: Yes Source: Developed by Drs. Aneudy Restrepo, Luna Powers, Yrn Gaxiola and colleagues, with an educational marilee from [employer]. Thrive Questionnaire Date Thrive assessed: 09/19/24 I am a: Patient What is your living situation today?: I have a steady place to live Within the past 12 months, did the food you bought not last and you didn't have the money to get more?: Never true Within the past 12 months, did you worry whether your food would run out before you got money to buy more?: Never true Do you have trouble paying for medicines?: No Do you have trouble getting transportation to medical appointments?: No Do you have trouble paying your heating and electricity bill?: No Do you have trouble taking care of your child, family member or friend?: No Do you have trouble with day-to-day activities such as bathing, preparing meals, shopping, managing finances, etc.?: No Are you currently unemployed and looking for a job?: No Are you interested in more education?: No Please select the resources that you would like help with: None Currently or been in a relationship where the following occur: No concerns reported THRIVE Score: 0 AUDIT C Alcohol Use Questionnaire (AUDIT-C) 1. How often do you have a drink containing alcohol?: Never 3. How often do you have six or more drinks on one occasion?: Never Total Score: 0 Score Reviewed/Action Taken: Yes HARDIK-7 AMB Questionnaire HARDIK-7 Date HARDIK - 7 assessed: 09/19/24 Feeling nervous, anxious, or on edge: 2 = More than half the days Not being able to stop or control worryin = Several days Worrying too much about different things: 3 = Nearly every day Trouble relaxin = More than half the days Being so restless that it is hard to sit still: 2 = More than half the days Becoming easily annoyed or irritable: 1 = Several days Feeling afraid as if something awful might happen: 0 = Not at all Total HARDIK-7 score (0-4 normal; 5-9 mild; 10-14 moderate; 15-21 severe): 11 Source: Developed by Drs. Aneudy Restrepo, Luna Powers, Yrn Gaxiola and colleagues, with an educational marilee from [employer]. HARDIK-7 Assessment Billing HARDIK-7 Assessment Tool: HARDIK-7 Assessment 25663 Review of Systems Const Details: Constitutional: Denies fever. Skin: Denies rash. Eye: Denies eye pain. ENMT: Denies sore throat and nasal congestion. Respiratory: Denies shortness of breath and cough. Gastrointestinal: Denies nausea, vomiting or abdominal pain. Cardiovascular: Denies chest pain and syncope. Genitourinary: Denies dysuria. Musculoskeletal: Denies extremity pain. Neurologic: Denies headaches, confusion, and weakness. Psychiatric: Denies suicidal thoughts Allergy/ Immunologic: Denies impaired immunity. Physical exam (Primary Care) Vital Signs: Last Vital Signs Pulse 91 09/19/24 11:42 Resp 14 09/19/24 11:42 BP 132/70 09/19/24 11:42 Pulse Ox 97 09/19/24 11:42 Oxygen Delivery Method Room Air 09/19/24 11:42 BMI result Body Mass Index 34.7 BMI Assessment/Plan discussion: High BMI High, discussed plan: lifestyle Tobacco/Smoking Status: Tobacco use Status Tobacco use date assessed 09/19/24 09/19/24 11:49 Patient Tobacco Use Status Never used Tobacco 09/19/24 11:47 e-Cigarette/Vaping Use Never Used 09/19/24 11:49 PHQ-9: PHQ-9 Score PHQ-9: Total score 5 09/19/24 15:41 Depression Screening Interpretation: Negative Thrive Assessment: Date of Thrive Assessment Date Thrive assessed 09/19/24 09/19/24 11:41 Currently or been in a relationship where the following occur: No concerns reported Const Other: General: Well developed, well nourished, in no acute distress. Appears stated age. Head: Normocephalic, atraumatic. Eyes: Pupils are equal, round and reactive to light and accommodation. Conjunctivae are clear. Vision grossly normal. Ears: TMs clear AU, EACS WNL Nose: Patent, without discharge. Mouth: There are no ulcers or lesions noted. No inflammation, no post nasal drip, no plaques nor exudates. Neck: Supple, no adenopathy or thyromegaly. Lungs: Clear to auscultation bilaterally. No rales, rhonchi or wheeze noted. Good air flow in all hunt. Heart: Regular rate and rhythm. No murmurs, click, rubs or gallops are noted. Abdomen: Bowel sounds present in all quadrants. The abdomen is soft, nontender, with no masses or organomegaly noted. No hernias are noted. Musculoskeletal: Joints are nontender, without swelling, redness, or effusions. Range of motion is observed to be normal. + SLR bilat L>R, paraspinal tenderness left lower, spinal tenderness l midline, normal reflexes Pulses: Peripheral pulses are equal and palpable bilaterally. Extremities: No clubbing, cyanosis nor edema is noted. Neurologic: Gait and station normal. Cranial Nerves 2-12 intact. Motor strength grossly symmetrical and intact. No sensory loss. Balance normal. Skin: No rashes, ulcers, or lesions noted. Turgor is good. Skin color is good. Hair and nails are without abnormalities. Psych: Normal eye contact, affect and mood appropriate, and normal interactions. Patient is alert and appropriate to context. Coding Level of Care Code New Pt Level 2 (64707) New Pt Prev Care 18-39yr(92988 Diagnoses Encounter for general adult medical examination with abnormal findings Z00.01 Radicular low back pain M54.10 Laboratory exam ordered as part of routine general medical examination Z00.00 Bipolar 2 disorder F31.81 BMI 34.0-34.9,adult Z68.34 Obesity, Class I, BMI 30-34.9 E66.811 Herpes B00.9 Flexural eczema L20.82 Eczema type: flexural Alcohol dependence in remission F10.21 Chronic constipation K59.09 Additional Codes HARDIK-7 Assessment Billing - HARDIK-7 Assessment Tool: HARDIK-7 Assessment 31676 ([id number]) Assessment & Plan Assessment & Plan (1) Encounter for general adult medical examination with abnormal findings: Code(s): Z00.01 - Encounter for general adult medical examination with abnormal findings Plan: . (2) Radicular low back pain: Code(s): M54.10 - Radiculopathy, site unspecified Category: Medical Plan: . (3) Laboratory exam ordered as part of routine general medical examination: Code(s): Z00.00 - Encounter for general adult medical examination without abnormal findings Category: Medical Plan: . (4) Bipolar 2 disorder: Code(s): F31.81 - Bipolar II disorder Category: Medical Plan: . (5) BMI 34.0-34.9,adult: Code(s): Z68.34 - Body mass index [BMI] 34.0-34.9, adult Category: Medical Plan: . (6) Obesity, Class I, BMI 30-34.9: Code(s): E66.811 - Obesity, class 1 Category: Medical Plan: . (7) Herpes: Code(s): B00.9 - Herpesviral infection, unspecified Category: Medical Plan: . (8) Eczema: Code(s): L30.9 - Dermatitis, unspecified Category: Medical Qualifiers: Eczema type: flexural Qualified Code(s): L20.82 - Flexural eczema Plan: . (9) Alcohol dependence in remission: Code(s): F10.21 - Alcohol dependence, in remission Category: Medical Plan: . (10) Chronic constipation: Code(s): K59.09 - Other constipation Category: Medical Plan: . Orders: Orders Comprehensive Met. Panel Today Z00.00 - Encounter for general adult medical examination without abnormal findings TSH reflex Free T4 Today Z00.00 - Encounter for general adult medical examination without abnormal findings Vitamin B12 and Folate Today Z00.00 - Encounter for general adult medical examination without abnormal findings MR lumbar spine wo con Today M54.10 - Radiculopathy, site unspecified Hemoglobin A1c Today Z00.00 - Encounter for general adult medical examination without abnormal findings Lipid Panel Today Z00.00 - Encounter for general adult medical examination without abnormal findings Microalbumin, Random (w Creat) Today Z00.00 - Encounter for general adult medical examination without abnormal findings Referrals Psychiatry Outpatient Consultation Service F31.81 - Bipolar II disorder
[2024-09-19 11:42] VITALS: BP 132/70; PULSE 91; RESP 14; O2SAT 97; BMI 34.7
== END 2024-09-19 12:21 | disposition home or self-care (01) ==
PROVIDERS: Visit Provider Nurse Practitioner Family
DX: Z00.00 Encounter for general adult medical examination without abnormal findings (principal); M54.10 Radiculopathy, site unspecified; F31.81 Bipolar II disorder; F10.21 Alcohol dependence, in remission; Z68.34 Body mass index [BMI] 34.0-34.9, adult; E66.811 Obesity, class 1; B00.9 Herpesviral infection, unspecified; L20.82 Flexural eczema; K59.09 Other constipation

== ENCOUNTER → 2024-09-19 11:36 | Outpatient (BNVA) | payer OTHER, SELFPAY | PROVIDERS: Visit Provider Nurse Practitioner Family | DX: Z00.01 Encounter for general adult medical examination with abnormal findings (principal); M54.10 Radiculopathy, site unspecified; F31.81 Bipolar II disorder; E66.811 Obesity, class 1; Z68.34 Body mass index [BMI] 34.0-34.9, adult; B00.9 Herpesviral infection, unspecified; L20.82 Flexural eczema; F10.21 Alcohol dependence, in remission; K59.09 Other constipation | CPT/HCPCS: 96127 ==

== ENCOUNTER 2024-09-19 12:36 | Outpatient (REF) | payer OTHER, SELFPAY ==
[2024-09-19 14:49] LABS: Alanine Aminotransferase 18 U/L (0-31); Albumin Level 4.4 g/dL (3.5-5.0); Alkaline Phosphatase 55 U/L (39-117); Anion Gap 11 (12-20); Aspartate Amino Transferase 16 U/L (5-31); Bilirubin Total 0.5 mg/dL (0.0-1.0); Blood Urea Nitrogen 15 mg/dL (9-16); Calcium 9.7 mg/dL (8.4-10.2); Carbon Dioxide 27 mmol/L (22-29); Chloride 106 mmol/L (96-108); Cholesterol 122 mg/dL (<200); Estimated Glomerular Filt Rate > 60; Glucose Random 84 mg/dL (60-115); HDL Cholesterol 49 mg/dL (>40); LDL Cholesterol Calculated 65 mg/dL (<100); Potassium 4.3 mmol/L (3.3-5.1); Sodium 140 mmol/L (135-145); Total Protein 7.4 g/dL (6.5-8.0); Triglycerides 42 mg/dL (<150)
[2024-09-19 14:59] LABS: Estimated Average Glucose 88 mg/dL; Hemoglobin A1C 96.0049 umol/L; Hemoglobin A1c % 4.7 % (<6.0); Total Hemoglobin (HGBA1C) 3441.0381 umol/L
[2024-09-19 15:01] LABS: Creatinine Urine 22.95 mg/dL; Microalbumin Urine < 5.0 mg/L
[2024-09-19 15:06] LABS: TSH reflex Free T4 0.41 uIU/mL (0.32-4.0)
[2024-09-19 15:44] LABS: Folate 10.1 ng/mL (> or = 4.0); Vitamin B12 495 pg/mL (200-900)
== END 2024-09-19 12:37 | disposition home or self-care (01) ==
LOC: HO.WFDLDS 12:36
PROVIDERS: Visit Provider Nurse Practitioner Family
DX: Z00.00 Encounter for general adult medical examination without abnormal findings (principal)
CPT/HCPCS: 36415; 80053; 80061; 82043; 82570; 82607; 82746; 83036; 84443

== ENCOUNTER → 2024-09-28 09:56 | Outpatient (BNV) | payer OTHER, SELFPAY | PROVIDERS: PCP Nurse Practitioner Family; Visit Provider Radiology Diagnostic Radiology | DX: M54.16 Radiculopathy, lumbar region (principal) | CPT/HCPCS: 72148 ==

== ENCOUNTER 2024-09-28 10:02 | Outpatient (REF) | payer OTHER, SELFPAY ==
--- NOTE | ~2024-09-28 | MR_ITS ---
EXAMINATION: MR LUMBAR SPINE WITHOUT CONTRAST CLINICAL INFORMATION: The colopathy, unspecified. Bilateral lower extremity numbness. COMPARISON: None available. TECHNIQUE: MRI of the lumbar spine was obtained using routine sequences without contrast. FINDINGS: Last rib-bearing vertebra labeled T12. No bone marrow STIR signal abnormality. Multilevel disc desiccation, L3-4, to L5-S1. The alignment is normal. Focal hyperintense T2 signal within the posterior intervertebral disc of L5-S1 and likely annular fissure. Conus medullaris ends at superior endplate of L1 with normal signal. T12-L1: No compression upon neural elements. L1-2: No compression upon neural elements. L2-3: Broad-based disc bulging. Facet joint hypertrophy. No compression upon neural elements. L3-4: Central and left subarticular broad-based disc herniation resulting in ventral deformity of the thecal sac and encroachment of the neural elements. Encroachment of the exiting nerve roots, likely left L4 on its lateral recess. Bilateral facet joint hypertrophy. Bilateral neuroforamina narrowing. L4-5: There is a broad-based central, left subarticular and foraminal herniated disc resulting in ventral deformity of the thecal sac encroaching the neural elements, particularly the left L5 and left L4. L5-S1: Left subarticular broad-based herniated disc resulting in ventral deformity of the thecal sac and abutting the left S1 nerve root. No prevertebral compartment hematoma, mass or fluid collection. MR/MR lumbar spine wo con IMPRESSION: Multilevel central left subarticular and foraminal broad-based herniated discs at L3-4, L4-5 and L5-S1 encroaching likely compressing the neural elements of the thecal sac and the exiting nerve roots. Electronically signed by: Curt Polk MD 09/29/2024 12:11 PM [facility]
== END 2024-09-28 10:03 | disposition home or self-care (01) ==
LOC: HO.MRI 10:02
PROVIDERS: PCP Nurse Practitioner Family; Visit Provider Nurse Practitioner Family
DX: M54.10 Radiculopathy, site unspecified (principal)
CPT/HCPCS: 72148

== ENCOUNTER 2024-09-30 12:16 | Outpatient (AMB) | payer OTHER, SELFPAY ==
--- NOTE | 2024-09-30 12:20 | A.OFFPC_ITS ---
Intake Visit Reasons: review mri Allergies No Known Drug Allergies Allergy (Unknown, Verified 09/30/24 12:20) None Medication List - Last Reconciled 09/30/24 by ALPHONSO Michelle semaglutide (weight loss) (Wegovy) 2.4 mg subcut QWEEK Tobacco use date assessed: 09/19/24 Dental Screening Dental Screen Date: 09/19/24 HPI HPI Comments History of Present Illness Details 24 y/o F with HSV, obesity, bipolar 2, e czema, etoh dependence in william ssion 2021, post depression, chronic constipation Telehealth visit to review MRI of L Spine done to eval: back injury 3 years ago, no imaging at that time. Had lumbar spine xray, reviewed. WNL. Pain in transverse low back, ariza. Tingling on bilat anterior thighs, stops mid thigh. Was given flexeril and tramadol. Did not take tramadol. The flexeril helped some. Ibuprofen helps some, too. 08/2024 MRI L Spine: Multilevel central left subarticular and foraminal broad- based herniated discs at L3-4, L4-5 and L5-S1 encroaching likely compressing the neural elements of the thecal sac and the exiting nerve roots No bone marrow STIR signal abnormality. Multilevel disc desiccation, L3-4, to L5-S1. The alignment is normal. Focal hyperintense T2 signal within the posterior intervertebral disc of L5-S1 and likely annular fissure. Conus medullaris ends at superior endplate of L1 with normal signal. Plan: Refer to [facility] Pain [facility] for further eval and tx. Total time spent on this encounter is 10 minutes. [facility] Medical History (Updated 09/30/24 @ 16:50 by ALPHONSO Michelle) Bipolar 2 disorder Back injury Herpes simplex type 2 infection Herpes simplex type 1 infection Morbid obesity with body mass index (BMI) of 40.0 to 44.9 in adult Asthma Surgical History Hx of section H/O wisdom tooth extraction Family History (Updated 09/19/24 @ 11:49 by Vicente Yao MA) Mother No problems noted. Father Mental health disorder Substance abuse High cholesterol Alcoholism Maternal Grandmother Diabetes mellitus Maternal Grandfather Esophageal cancer Paternal Grandmother Lung cancer Alcoholism Paternal Grandfather Colon cancer Social History (Updated 09/19/24 @ 11:47 by Vicente Yao MA) Household Members: Family Both parents involved: Yes Caregiver staying overnight: No Housing: House Are you a primary manager intensive care to a significant other at home: No Do you presently have visiting nurse or other home services: No 75 years or older and lives alone: No Alcohol intake: former Patient Tobacco Use Status: Never used Tobacco e-Cigarette/Vaping Use: Never Used Second Hand Smoke Exposure: No service: No Current occupational status: employed 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 Aneudy Restrepo, Luna Powers, Yrn Gaxiola and colleagues, with an educational marilee from [employer]. Physical exam (Primary Care) Tobacco/Smoking Status: Tobacco use Status Tobacco use date assessed 09/19/24 09/30/24 12:20 Patient Tobacco Use Status Never used Tobacco 09/30/24 12:20 e-Cigarette/Vaping Use Never Used 09/30/24 12:20 Thrive Assessment: Date of Thrive Assessment Date Thrive assessed 09/19/24 09/30/24 12:20 Telehealth Telehealth Telehealth Platform: [facility] Location of provider rendering services: practice address Location of patient: address on file Patient Identification confirmed using: Name, : Yes Telehealth method: voice only Patient verbally consented to treatment: Yes Patient verbally consented to billing insurance company: Yes Patient informed of any privacy concerns related to visit: Yes Minutes spent on Phone/Video with Pt.: 5 Results Reviewed Results Reviewed: [address] [address] Magnetic Resonance Report Signed Patient: Rashida Ayala MR#: [id number] : 2000 Acct:[id number] Age/Sex: 24 / F ADM Date: 09/28/24 Loc: HO.MRI Attending Dr: Ashley WERNER Ordering Physician: Ashley Neville Date of Service: 09/28/24 Procedure(s): MR lumbar spine wo con Accession Number(s): [id number] cc: Ashley Neville~ EXAMINATION: MR LUMBAR SPINE WITHOUT CONTRAST CLINICAL INFORMATION: The colopathy, unspecified. Bilateral lower extremity numbness. COMPARISON: None available. TECHNIQUE: MRI of the lumbar spine was obtained using routine sequences without contrast. FINDINGS: Last rib-bearing vertebra labeled T12. No bone marrow STIR signal abnormality. Multilevel disc desiccation, L3-4, to L5-S1. The alignment is normal. Focal hyperintense T2 signal within the posterior intervertebral disc of L5-S1 and likely annular fissure. Conus medullaris ends at superior endplate of L1 with normal signal. T12-L1: No compression upon neural elements. L1-2: No compression upon neural elements. L2-3: Broad-based disc bulging. Facet joint hypertrophy. No compression upon neural elements. L3-4: Central and left subarticular broad-based disc herniation resulting in ventral deformity of the thecal sac and encroachment of the neural elements. Encroachment of the exiting nerve roots, likely left L4 on its lateral recess. Bilateral facet joint hypertrophy. Bilateral neuroforamina narrowing. L4-5: There is a broad-based central, left subarticular and foraminal herniated disc resulting in ventral deformity of the thecal sac encroaching the neural elements, particularly the left L5 and left L4. L5-S1: Left subarticular broad-based herniated disc resulting in ventral deformity of the thecal sac and abutting the left S1 nerve root. No prevertebral compartment hematoma, mass or fluid collection. MR/MR lumbar spine wo con IMPRESSION: Multilevel central left subarticular and foraminal broad-based herniated discs at L3-4, L4-5 and L5-S1 encroaching likely compressing the neural elements of the thecal sac and the exiting nerve roots. Electronically signed by: Curt Polk MD 09/29/2024 12:11 PM [facility] Dictated By: Curt Estrada Signed By: <Electronically signed by Curt Hastings in [place]> 09/29/24 1211 DD/ [id number] TD/TT: 09/28/24 1029 [employer] Sales Representative: Coding Level of Care Code Est Pt Level 1 (70383) Complex EM visit Add On G2211 Diagnoses Radicular low back pain M54.10 Lumbar disc herniation with radiculopathy M51.16 Assessment & Plan Assessment & Plan (1) Radicular low back pain: Code(s): M54.10 - Radiculopathy, site unspecified Category: Medical Plan: . (2) Lumbar disc herniation with radiculopathy: Comment: 08/2024 MRI L Spine: Multilevel central left subarticular and foraminal broad- based herniated discs at L3-4, L4-5 and L5-S1 encroaching likely compressing the neural elements of the thecal sac and the exiting nerve roots No bone marrow STIR signal abnormality. Multilevel disc desiccation, L3-4, to L5-S1. The alignment is normal. Focal hyperintense T2 signal within the posterior intervertebral disc of L5-S1 and likely annular fissure. Conus medullaris ends at superior endplate of L1 with normal signal. Code(s): M51.16 - Intervertebral disc disorders with radiculopathy, lumbar region Category: Medical Plan: . Plan . Orders: Referrals Pain Management Referral M51.16 - Intervertebral disc disorders with radiculopathy, lumbar region, M54.10 - Radiculopathy, site unspecified
== END 2024-09-30 16:50 | disposition home or self-care (01) ==
LOC: HO.HMCFM 12:17
PROVIDERS: PCP Nurse Practitioner Family; Visit Provider Nurse Practitioner Family
DX: M51.16 Intervertebral disc disorders with radiculopathy, lumbar region (principal)

== ENCOUNTER → 2024-09-30 12:16 | Outpatient (BNVA) | payer OTHER, SELFPAY | PROVIDERS: PCP Nurse Practitioner Family; Visit Provider Nurse Practitioner Family ==

== ENCOUNTER 2025-05-04 23:38 | Emergency (ER) | payer OTHER, SELFPAY ==
[2025-05-04 23:47] VITALS: BP 121/74; PULSE 84; RESP 16; TEMP 36.7; O2SAT 96; BMI 34.6
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
[2025-05-05] MEDS: Bacitracin Oint 0.9 GM PACKET 1 APPL TOPICAL (00:15)
[2025-05-05 00:17] VITALS: BP 121/74; PULSE 84; RESP 16; TEMP 36.7; O2SAT 96
--- NOTE | 2025-05-05 00:17 | PC.NURSE ---
reviewed discharge instructions with pt. pt verbalized understanding, medicated per jan.
== END 2025-05-05 00:18 | disposition home or self-care (01) ==
PROVIDERS: Emergency Provider Emergency Medicine; PCP Nurse Practitioner Family
DX: S05.02XA Injury of conjunctiva and corneal abrasion without foreign body, left eye, initial encounter (principal); Y33.XXXA Other specified events, undetermined intent, initial encounter; H57.12 Ocular pain, left eye; Y93.9 Activity, unspecified; Y92.9 Unspecified place or not applicable; Y99.8 Other external cause status
CPT/HCPCS: 99283; 99284